=== PATIENT | female | born 1955 | race Caucasian/White ===

== ENCOUNTER 2020-04-22 16:53 | Observation (INO) ==
[2020-04-22] MEDS ORDERED: MoRPHine SULFATE 4 MG/ML 1 ML CARP\\VIAL IV STA (17:14)
[2020-04-22] MEDS ORDERED: PIPERACILLIN/TAZOBACTAM 4.5 GM/120 ML BAG IV STA (17:14)
[2020-04-22] MEDS ORDERED: SODIUM CHLORIDE 0.9% 1000ML 1,000 ML IV SCH (17:15)
--- NOTE | 2020-04-22 17:25 | Emergency Department Note ---
Impression & Plan Diverticulitis large intestine, Abdominal pain, LLQ ED Provider Note Provider: Hector Bradshaw MD DATE OF SERVICE: 04/22/2020 CHIEF COMPLAINT: Abdominal pain HISTORY OF PRESENT ILLNESS: Patient is a 62-year-old female history of hypertension and diabetes presenting today with reports of 5 days of some left lower quadrant pain. Reports started on Cipro Flagyl 4 days ago taking this medication for presumed diverticulitis. Symptoms not improving. Fever at the beginning the course of 100.9 Fahrenheit reported. None since but fatigue. Decreased appetite. Has had a negative cover test over the last several days as well. Denies chest pain or shortness of breath. Had a CT scan by her primary doctor done yesterday as an outpatient showing diverticulitis without evidence of abscess or perforation. Patient is not improved and had follow-up evaluation in the office today with continued significant pain failing outpatient therapy with these antibiotics. Referred here for further care. Patient reports 5 out of 10 pain at this time sometimes worse. Pain with the palpation. Had some diarrhea after the oral contrast yesterday but denies any blood. Again denies a history of diverticulitis. Decreased oral intake reported. Denies back pain. REVIEW OF SYSTEMS: A total of 10 review of systems was obtained and negative except as stated above in the HPI. PAST MEDICAL HISTORY: As noted above MEDICATIONS: Reviewed medication list and includes aspirin, metformin, glipizide SOCIAL HISTORY: Lives at home with 2 dogs, former smoker distantly PHYSICAL EXAM: GENERAL: alert and oriented in no acute distress on stretcher Head: normocephalic and atraumatic EYES: No injection, discharge or icterus. ENT: Mucous membranes pink and moist. LUNGS: Airway patent. No retractions. Breath sounds clear HEART: Regular rate and rhythm. No chest wall tenderness ABDOMEN: Soft non-peritoneal. No guarding or rebound. Left lower quadrant tenderness appreciated. BACK: No bilateral flank tenderness. SKIN: Acyanotic, warm, dry, without rashes EXTREMITIES: Without swelling, tenderness or deformity NEUROLOGICAL: No focal deficits. No aphasia. No facial droop or slurred speech. Ambulatory. Patient's hypertension was referred to the [facility] COURSE: 1705 Patient was first seen and H&P performed. 1829 Patient reassessed and updated. Patient was more comfortable with the morphine. Discussed labs and plan for admission. She was in agreement. Hospitalist will be contacted. Patient's laboratory studies and imaging from yesterday reviewed. Differential includes Appendicitis, ovarian cyst, infections, diverticulitis, UTI, obstruction, mesenteric ischemia, aortic pathology, inflammatory bowel disease, renal colic, PUD, pancreatitis, biliary pathology, hernia, volvulus, constipation, as well as other pathologies. IMPRESSION/MEDICAL DECISION MAKING: Patient presents with failure of outpatient treatment with Cipro and Flagyl of diverticulitis. First episode of this. CT scan done yesterday without evidence of perforation or abscess. Continue pain today and referred here. Afebrile upon arrival. Fever several days ago. Negative COVID test several days ago that does not have other respiratory symptoms. Denies chest pain. Focally tender. Doubt perforation as she has no peritoneal signs. Given the recent CT do not feel we need to repeat at this time. Laboratory studies were obtained. Given some IV fluids, morphine for pain, and will start on Zosyn. Patient does not appear acutely septic at this time. Given that she has failed outpatient initial treatment, believe at least observation here overnight for IV antibiotics before possible transition to a different oral antibiotic is indicated. Patient was in agreement. The hospitalist will be contacted. DIAGNOSIS: Diverticulitis, left lower quad abdominal pain DISPOSITION: Hospitalist will evaluate Patient was agreeable with this plan. Past Med/Surg History Medical History Diabetes Hyperlipidemia Migraine Surgical History History of cholecystectomy Family History Mother Dementia Diabetes Social History Preferred Language: Cypriot Communication Ability: Effective Material Inspector Required: No Beliefs That Will Affect Care: None Current Living Situation: Alone Other Information That Helps Us Care for You: No Feels Safe at Home: Yes Safety Concerns: Feels Safe At This Time Smoking Status: Former smoker Hx Alcohol Use: Yes Hx Substance Use: No Allergies Allergies Allergy/AdvReac Type Severity Reaction Status Date / Time Sulfa (Sulfonamide Allergy Hives Unverified 04/22/20 18:23 Antibiotics) Home Meds Home Medications Medication Instructions Recorded Confirmed aspirin 81 mg PO DAILY 04/22/20 04/22/20 atorvastatin 10 mg PO DAILY 04/22/20 04/22/20 glipizide 5 mg PO DAILY 04/22/20 04/22/20 metformin 1,000 mg PO BID 04/22/20 04/22/20 pantoprazole 20 mg PO DAILY 04/22/20 04/22/20 pediatric multivitamin no.29 2 tab PO DAILY 04/22/20 04/22/20 [G[employer]ies [employer] Multivitamins] sertraline 50 mg PO DAILY 04/22/20 04/22/20 trazodone 100 mg PO HS 04/22/20 04/22/20 Results & Data (ED) Vital Signs Vital Signs - 24 hr 04/22/20 17:00 04/22/20 19:00 Temperature 36.8 C Temperature Source Oral Pulse Rate 99 H 77 Pulse Rate from SpO2 Sensor 77 Respiratory Rate 20 20 Respiratory Effort / Characteristics Non-Labored Spontaneous Respiratory Depth Normal Respiratory Pattern Regular Blood Pressure 135/91 136/85 Blood Pressure Mean 105 113 Pulse Oximetry 96 91 Oxygen Delivery Method Room Air Sepsis Recent Fever Within 48 Hours Yes Sepsis Action Taken by Nursing No Action Required Laboratory Data Result diagrams: 04/22/20 17:32 04/22/20 17:32 Lab Results 04/22/20 04/22/20 04/22/20 Range/Units 17:32 17:32 17:32 WBC 8.42 (4.8-10.8) K/uL RBC 5.12 (4.2-5.4) M/uL Hgb 14.9 (12.0-16.0) g/dL Hct 46.1 (37-47) % MCV 90.0 (80-100) fL MCH 29.1 (25-34) pg MCHC 32.3 (32-36) g/dL RDW Std Deviation 47.4 H (36.4-46.3) fL RDW Coeff of Ronald 14.3 (11.5-14.5) % Plt Count 504 H (130-400) K/uL MPV 10.0 (7.4-10.4) fL Immature Gran % (Auto) 0.1 % Neut % (Auto) 57.1 % Lymph % (Auto) 31.0 % Baca % (Auto) 8.2 % Eos % (Auto) 2.3 % Baso % (Auto) 1.3 % Immature Gran # (Auto) 0.01 (0.00-0.02) K/uL Neut # (Auto) 4.81 (1.4-6.5) K/uL Lymph # (Auto) 2.61 (1.2-3.4) K/uL Baca # (Auto) 0.69 H (0.11-0.59) K/uL Eos # (Auto) 0.19 (0-0.5) K/uL Baso # (Auto) 0.11 (0-0.2) K/uL PT 10.4 (9.0-12.0) Seconds INR 1.0 (0.9-1.1) Sodium 141 (136-145) mmol/L Potassium 3.3 L (3.5-5.1) mmol/L Chloride 104 (98-107) mmol/L Carbon Dioxide 27 (21-32) mmol/L Anion Gap 10.0 (3-11) BUN 9 (7-18) mg/dl Creatinine 0.88 (0.6-1.2) mg/dl Est Cr Clr Drug Dosing 68.7 ml/min Est GFR ( Amer) 81.6 Est GFR (Non-Af Amer) 70.4 BUN/Creatinine Ratio 10.1 (10-20) Glucose 107 H (70-99) mg/dl Lactate (0.4-2.0) mmol/L Calcium 9.1 (8.5-10.1) mg/dl Total Bilirubin 0.4 (0.2-1) mg/dl AST 21 (15-37) U/L ALT 36 (12-78) U/L Alkaline Phosphatase 62 (45-117) U/L Total Protein 7.8 (6.4-8.2) gm/dl Albumin 3.9 (3.4-5.0) gm/dl Globulin 3.9 (2.5-4.0) gm/dl Albumin/Globulin Ratio 1.0 (0.9-2) Lipase 127 (73-393) U/L Procalcitonin (0-0.5) ng/ml 04/22/20 04/22/20 Range/Units 17:32 17:32 WBC (4.8-10.8) K/uL RBC (4.2-5.4) M/uL Hgb (12.0-16.0) g/dL Hct (37-47) % MCV (80-100) fL MCH (25-34) pg MCHC (32-36) g/dL RDW Std Deviation (36.4-46.3) fL RDW Coeff of Ronald (11.5-14.5) % Plt Count (130-400) K/uL MPV (7.4-10.4) fL Immature Gran % (Auto) % Neut % (Auto) % Lymph % (Auto) % Baca % (Auto) % Eos % (Auto) % Baso % (Auto) % Immature Gran # (Auto) (0.00-0.02) K/uL Neut # (Auto) (1.4-6.5) K/uL Lymph # (Auto) (1.2-3.4) K/uL Baca # (Auto) (0.11-0.59) K/uL Eos # (Auto) (0-0.5) K/uL Baso # (Auto) (0-0.2) K/uL PT (9.0-12.0) Seconds INR (0.9-1.1) Sodium (136-145) mmol/L Potassium (3.5-5.1) mmol/L Chloride (98-107) mmol/L Carbon Dioxide (21-32) mmol/L Anion Gap (3-11) BUN (7-18) mg/dl Creatinine (0.6-1.2) mg/dl Est Cr Clr Drug Dosing ml/min Est GFR ( Amer) Est GFR (Non-Af Amer) BUN/Creatinine Ratio (10-20) Glucose (70-99) mg/dl Lactate 1.4 (0.4-2.0) mmol/L Calcium (8.5-10.1) mg/dl Total Bilirubin (0.2-1) mg/dl AST (15-37) U/L ALT (12-78) U/L Alkaline Phosphatase (45-117) U/L Total Protein (6.4-8.2) gm/dl Albumin (3.4-5.0) gm/dl Globulin (2.5-4.0) gm/dl Albumin/Globulin Ratio (0.9-2) Lipase (73-393) U/L Procalcitonin < 0.05 (0-0.5) ng/ml Administered Medications Potassium Chloride/Sodium Chloride (Normal Saline W/20 Meq Kcl) 20 meq in 1,000 mls @ 100 mls/hr IV .Q10H THANH Stop: 05/22/20 21:29 Last Admin: 04/22/20 22:03 Dose: 100 mls/hr Documented by: [id number] Piperacillin Sod/Tazobactam (Sod 3.375 gm/ Dextrose) 115 mls @ 28.75 mls/hr IV Q8H THANH; Protocol Stop: 05/02/20 21:59 Last Admin: 04/22/20 22:03 Dose: 28.8 mls/hr Documented by: [id number] Insulin Aspart (Novolog Flexpen) 0 units SC ACHS THANH Stop: 05/22/20 20:59 Last Admin: 04/22/20 21:47 Dose: Not Given Documented by: [id number] Cosigned by: [id number] Trazodone HCl (Desyrel) 100 mg PO HS THANH Stop: 05/22/20 20:59 Last Admin: 04/22/20 21:59 Dose: 100 mg Documented by: [id number] Discontinued Medications Sodium Chloride (Nss 1000ml) 1,000 mls @ 999 mls/hr IV .Q1H1M THANH Stop: 04/22/20 18:15 Last Infusion: 04/22/20 18:48 Dose: 0 mls/hr Documented by: [id number] Admin: 04/22/20 17:36 Dose: 999 mls/hr Documented by: [id number] Piperacillin Sod/Tazobactam Sod (Zosyn) 4.5 gm in 120 mls @ 200 mls/hr IV NOW STA Stop: 04/22/20 17:49 Last Infusion: 04/22/20 18:48 Dose: 0 mls/hr Documented by: [id number] Admin: 04/22/20 17:40 Dose: 200 mls/hr Documented by: [id number] Morphine Sulfate (Morphine Sulfate) 4 mg IV NOW STA Stop: 04/22/20 17:15 Last Admin: 04/22/20 17:36 Dose: 4 mg Documented by: [id number] Potassium Chloride (Klor-Con M20) 40 meq PO ONE ONE Stop: 04/22/20 20:42 Last Admin: 04/22/20 21:59 Dose: 40 meq Documented by: [id number] Discharge Plan Visit Data *Final* Discharge Date/Time: 04/22/20 20:09 Chief Complaint: Referred by Doctor Stated Complaint: INFECTION NOT HEALING FROM ANTIBIOTIC ED Provider: Hector Bradshaw Discharge Problem: Diverticulitis large intestine, Abdominal pain, LLQ Patient Disposition: Admitted As Inpatient Discharge Instructions Interventions: ED Discharge Assessment Last Done: 04/22/20 20:09 Discharge Problem: Diverticulitis large intestine Qualifiers: Diverticulitis bleeding: without bleeding Diverticulitis complication: without perforation or abscess Qualified Code(s): K57.32 - Diverticulitis of large intestine without perforation or abscess without bleeding
[2020-04-22 17:43] LABS: Basophils # (auto) 0.11 K/uL (0-0.2); Basophils % (auto) 1.3 %; Eosinophils # (auto) 0.19 K/uL (0-0.5); Eosinophils % (auto) 2.3 %; Hematocrit (blood only) 46.1 % (37-47); Hemoglobin 14.9 g/dL (12.0-16.0); Immature Granulocytes # (auto) 0.01 K/uL (0.00-0.02); Immature Granulocytes % (auto) 0.1 %; Lymphocytes # (auto) 2.61 K/uL (1.2-3.4); Mean Corpuscular Hemoglobin 29.1 pg (25-34); Mean Corpuscular Hgb Conc 32.3 g/dL (32-36); Monocytes # (auto) 0.69 K/uL (0.11-0.59); Monocytes % (auto) 8.2 %; Neutrophils # (auto) 4.81 K/uL (1.4-6.5); Neutrophils % (auto) 57.1 %; Platelet Count 504 K/uL (130-400); RDW Coefficient of Variation 14.3 % (11.5-14.5); RDW Standard Deviation 47.4 fL (36.4-46.3); Red Blood Count 5.12 M/uL (4.2-5.4); White Blood Count 8.42 K/uL (4.8-10.8)
[2020-04-22 17:52] LABS: Prothrombin Time 10.4 Seconds (9.0-12.0)
[2020-04-22 18:00] LABS: Albumin Level 3.9 gm/dl (3.4-5.0); BUN Creatinine Ratio 10.1 (10-20); Calcium 9.1 mg/dl (8.5-10.1); Creatinine Clr Calc Pharmacy 68.7 ml/min; Est GFR (African American) 81.6; Est GFR (Non-African American) 70.4; Potassium 3.3 mmol/L (3.5-5.1)
[2020-04-22 18:02] LABS: Bilirubin,Total 0.4 mg/dl (0.2-1); Globulin 3.9 gm/dl (2.5-4.0); Total Protein 7.8 gm/dl (6.4-8.2)
--- NOTE | 2020-04-22 19:11 | History & Physical Report ---
Date of Service April 22, 2020 Assessment & Plan (1) Diverticulitis large intestine: Acute Diverticulitis Failed outpatient Cipro, Flagyl for [address] ABD:Acute diverticulitis at the juncture of the descending and proximal sigmoid colon. Considerable focal wall thickening and pericolonic infiltrative change. No evidence for drainable abscess or collection. No evidence for an obstructive pattern. COVID screen negative (outpatient) Normal lactate, procalcitonin levels No signs of sepsis Started on IV fluids, Zosyn Blood cultures obtained Pain control with morphine as needed Clear liquid diet, advance as tolerated Consider surgery eval if no improvement with conservative manner Hypokalemia Likely secondary to GI losses Replete electrolytes as needed Diarrhea Likely due to antibiotics Check stool studies DM Type II: Poorly controlled Will hold oral diabetic meds Last A1c:6.9 in Nov 2019 Insulin therapy while hospitalized Monitor BGs Anxiety Depression Continue home medication Dyslipidemia Continue Lipitor DVT Px: Lovenox SQ Code Status Full Code Disposition Plan to discharge home when medically stable. History of Present Illness Chief Complaint: Abdominal pain Primary Care Provider: Korin Jaime DO Patient is a 64-year-old female with history of diabetes mellitus, anxiety, depression, dyslipidemia, migraine and other medical problems presents with history of gradually worsening left lower quadrant abdominal pain since 5 days duration. Patient reports having fever 4 days ago which currently resolved. Patient was seen by PCP and was prescribed Cipro and Flagyl for presumed diverticulitis. Patient states abdominal pain mildly improved but has been persistent despite continuing the antibiotics. Reports associated nausea but no vomiting. Also started to have diarrhea since yesterday which is nonbloody. States having poor sleep secondary to abdominal pain and has decreased appetite. Abdominal pain is sharp to dull increases with standing and and on exertion. Also reports having chronic left shoulder discomfort from arthritis. She states being tested for COVID as outpatient which was negative. Denies any history of chest pain, SOB, palpitations, dizziness, pedal edema, diaphoresis, cough, headache, blood in stools, weight loss, dysuria, hematuria. Allergies Allergy/AdvReac Type Severity Reaction Status Date / Time Sulfa (Sulfonamide Allergy Hives Unverified 04/22/20 18:23 Antibiotics) Home Medications Home Medications Medication Instructions Recorded Confirmed Type aspirin 81 mg PO DAILY 04/22/20 04/22/20 History atorvastatin 10 mg PO DAILY 04/22/20 04/22/20 History glipizide 5 mg PO DAILY 04/22/20 04/22/20 History metformin 1,000 mg PO BID 04/22/20 04/22/20 History pantoprazole 20 mg PO DAILY 04/22/20 04/22/20 History pediatric multivitamin no.29 2 tab PO DAILY 04/22/20 04/22/20 History [Gummies Girls' Multivitamins] sertraline 50 mg PO DAILY 04/22/20 04/22/20 History trazodone 100 mg PO HS 04/22/20 04/22/20 History Past Med/Surg History Medical History Diabetes Hyperlipidemia Migraine Surgical History History of cholecystectomy Family History Mother Dementia Diabetes Social History Feels Safe at Home: Yes Smoking Status: Former smoker Hx Alcohol Use: Yes Hx Substance Use: No Review of Systems Review of Systems: All systems reviewed & are unremarkable except as noted in HPI & below Physical Exam Physical Exam: Physical Exam: Vitals signs as noted above General Appearance:Moderately built and nourished, no apparent distress Head: normocephalic, Atraumatic Eyes: normal inspection, EOMI, PERRL Neck: supple, Trachea midline Respiratory/Chest: Normal breath sounds, CTA, No accessory muscle use Cardiovascular: S1, S2, No murmur Abdomen/GI:Soft, LLQ tender, Bowel sounds present, no guarding or rigidity Extremities/Musculoskelatal:normal inspection, no edema Neurologic/Psych:AAOX3, grossly no focal neurological deficits Skin: normal color, warm Results & Data Results & Data ([facility]) Vital Signs (Past 12 Hours) Vital Signs Temp Pulse Resp BP Pulse Ox 04/22/20 17:00 36.8 C 99 H 20 135/91 96 Laboratory Results Short CBC 04/22/20 Range/Units 17:32 WBC 8.42 (4.8-10.8) K/uL Hgb 14.9 (12.0-16.0) g/dL Hct 46.1 (37-47) % Plt Count 504 H (130-400) K/uL BMP 04/22/20 17:32 Sodium 141 Potassium 3.3 L Chloride 104 Carbon Dioxide 27 BUN 9 Creatinine 0.88 Glucose 107 H Calcium 9.1 Liver Function 04/22/20 Range/Units 17:32 Total Bilirubin 0.4 (0.2-1) mg/dl AST 21 (15-37) U/L ALT 36 (12-78) U/L Alkaline Phosphatase 62 (45-117) U/L Albumin 3.9 (3.4-5.0) gm/dl (1) Diverticulitis large intestine Diverticulitis bleeding: without bleeding Diverticulitis complication: without perforation or abscess Qualified Code(s): K57.32 - Diverticulitis of large intestine without perforation or abscess without bleeding
[2020-04-22] MEDS ORDERED: MoRPHine SULFATE 2 MG/ML CARP IV PRN (20:41)
[2020-04-22] MEDS ORDERED: GLUCOSE 10 TABS/TUBE PO PRN (20:41)
[2020-04-22] MEDS ORDERED: POLYETHYLENE (MIRALAX) 17 GM PACK PO PRN (20:41)
[2020-04-22] MEDS ORDERED: DEXTROSE 50% 50 ML SYRINGE IV PRN (20:41)
[2020-04-22] MEDS ORDERED: GLUCAGON FOR INJ 1 MG VIAL SQ PRN (20:41)
[2020-04-22] MEDS ORDERED: CARBOHYDRATES FOR HYPOGLYCEMIA PO PRN (20:41)
[2020-04-22] MEDS ORDERED: POTASSIUM CHLORIDE 20 MEQ TABCR PO ONE (20:41)
[2020-04-22] MEDS ORDERED: ONDANSETRON INJ 2 MG/ML 2 ML VIAL IV PRN (20:41)
[2020-04-22] MEDS ORDERED: GLUCOSE 40% GEL 15 GM TUBE PO PRN (20:41)
[2020-04-22] MEDS ORDERED: ACETAMINOPHEN 325 MG TAB PO PRN (20:41)
[2020-04-22 21:10] LABS: Appearance Urine Clear (Clear); Bilirubin Urine Negative (Negative); Blood Urine Negative (Negative); Color Urine Yellow; Glucose Urine UA Negative (Negative); Ketones Urine Negative (Negative); Leukocyte Esterase Urine 1+ (Negative); Nitrite Urine Negative (Negative); Protein Urine Negative (Negative); Specific Gravity Urine 1.009 (1.000-1.030); Urobilinogen Urine Negative (Negative)
[2020-04-22 21:25] LABS: Bacteria Urine 1+ (Negative); RBC Urine 0-4 /hpf (0-4)
[2020-04-22] MEDS ORDERED: PIPERACILL/TAZOBAC CONSULT ACTIVE PRN (21:41)
[2020-04-22] MEDS: INSULIN ASPART 100 UNITS/ML 3 ML PEN SC SCH ×2 (21:46→21:47)
[2020-04-22] MEDS: TRAZODONE HCL 100 MG TAB PO SCH (21:59)
[2020-04-22] MEDS: PIPERACILLIN/TAZOBACTAM 3.375 GM in DEXTROSE 5% 100 ML IV SCH (22:03)
[2020-04-22] MEDS: NSS + 20MEQ KCL 20 MEQ/1,000 ML BAG IV SCH (22:03)
[2020-04-23] MEDS: PIPERACILLIN/TAZOBACTAM 3.375 GM in DEXTROSE 5% 100 ML IV SCH ×3 (05:45→22:33)
[2020-04-23 06:35] LABS: Basophils # (auto) 0.08 K/uL (0-0.2); Basophils % (auto) 1.2 %; Eosinophils # (auto) 0.46 K/uL (0-0.5); Eosinophils % (auto) 6.8 %; Hematocrit (blood only) 43.2 % (37-47); Hemoglobin 13.5 g/dL (12.0-16.0); Immature Granulocytes # (auto) 0.01 K/uL (0.00-0.02); Immature Granulocytes % (auto) 0.1 %; Lymphocytes # (auto) 2.13 K/uL (1.2-3.4); Lymphocytes % (auto) 31.6 %; Mean Corpuscular Hemoglobin 28.4 pg (25-34); Mean Corpuscular Hgb Conc 31.3 g/dL (32-36); Mean Corpuscular Volume 90.9 fL (80-100); Mean Platelet Volume 9.8 fL (7.4-10.4); Monocytes # (auto) 0.64 K/uL (0.11-0.59); Monocytes % (auto) 9.5 %; Neutrophils # (auto) 3.43 K/uL (1.4-6.5); Neutrophils % (auto) 50.8 %; Platelet Count 442 K/uL (130-400); RDW Coefficient of Variation 14.4 % (11.5-14.5); RDW Standard Deviation 48.2 fL (36.4-46.3); Red Blood Count 4.75 M/uL (4.2-5.4); White Blood Count 6.75 K/uL (4.8-10.8)
[2020-04-23 07:09] LABS: Calcium 8.3 mg/dl (8.5-10.1); Creatinine Clr Calc Pharmacy 70.3 ml/min; Est GFR (African American) 88.9; Est GFR (Non-African American) 76.7; Magnesium 2.1 mg/dl (1.8-2.4)
[2020-04-23] MEDS: NSS + 20MEQ KCL 20 MEQ/1,000 ML BAG IV SCH ×2 (07:47→18:10)
--- NOTE | 2020-04-23 08:16 | Hospitalist Progress Note ---
Date of Service April 23, 2020 Assessment & Plan (1) Diverticulitis large intestine: Acute Diverticulitis Failed outpatient Cipro Flagyl for [address] ABD:Acute diverticulitis at the juncture of the descending and proximal sigmoid colon. Considerable focal wall thickening and pericolonic infiltrative change. No evidence for drainable abscess or collection. No evidence for an obstructive pattern. COVID screen negative (outpatient) Normal lactate (1.4), procalcitonin levels No signs of sepsis Started on IV fluids, Zosyn Blood cultures - NGTD Pain control with morphine as needed Clear liquid diet, advance as tolerated Consider surgery eval if no improvement with conservative manner Patient is clinically improved, abdominal pain is much improved. She is having however frequent watery stools. C. difficile toxin negative Hypokalemia Likely secondary to GI losses Replete electrolytes as needed Diarrhea Likely due to antibiotics Check stool studies C. difficile toxin negative DM Type II: Will hold oral diabetic meds Last A1c:6.9 in Nov 2019 Hemoglobin A1c 6.4% Insulin therapy while hospitalized Monitor BGs Anxiety Depression Continue home medication Dyslipidemia Continue Lipitor DVT Px: Lovenox SQ Code Status : Full Code Disposition Plan to discharge home when medically stable. Admission and Anticipated Discharge Date Admission Date: April 22, 2020 Subjective Patient is lying in bed, in no acute distress. She says that she feels much better, her abdominal pain has much improved. She is having loose watery stools, says that she already had about 3 today. No nausea or vomiting. Denies any fevers, chills, chest pain. C. difficile negative Replace K Review of Systems Review of Systems: All systems reviewed & are unremarkable except as noted in HPI & below Constitutional: no fever and no chills Respiratory: no cough and no dyspnea Cardiovascular: no chest pain and no palpitations Gastrointestinal: no abdominal pain (Much improved), no nausea and no vomiting Physical Exam Physical Exam: General Appearance:Moderately built and nourished, no apparent distress Head: normocephalic, Atraumatic Eyes: normal inspection, EOMI, PERRL Neck: supple, Trachea midline Respiratory/Chest: Normal breath sounds, CTAB, no wheezing, rhonchi or crackles, no accessory muscle use Cardiovascular: S1, S2, No murmur Abdomen/GI:Soft, +LLQ mildly tender to palpation (much improved), Bowel sounds present, no guarding or rigidity Extremities/Musculoskelatal:normal inspection, no edema, moves extremities spontaneously Neurologic/Psych: AAOX3, answers questions appropriately, no facial asymmetry, speech fluent, moves extremities spontaneously Skin: normal color, warm Results & Data Results & Data ([facility]) Vital Signs (Past 12 Hours) Vital Signs Temp Pulse Resp BP Pulse Ox 04/23/20 07:18 36.7 C 67 18 134/81 97 04/22/20 23:09 36.7 C 67 16 136/82 93 04/22/20 20:45 36.9 C 69 18 139/86 93 Laboratory Results 04/23/20 04/23/20 04/23/20 Range/Units 06:03 06:03 06:03 WBC 6.75 (4.8-10.8) K/uL RBC 4.75 (4.2-5.4) M/uL Hgb 13.5 (12.0-16.0) g/dL Hct 43.2 (37-47) % MCV 90.9 (80-100) fL MCH 28.4 (25-34) pg MCHC 31.3 L (32-36) g/dL RDW Std Deviation 48.2 H (36.4-46.3) fL RDW Coeff of Ronald 14.4 (11.5-14.5) % Plt Count 442 H (130-400) K/uL MPV 9.8 (7.4-10.4) fL Immature Gran % (Auto) 0.1 % Neut % (Auto) 50.8 % Lymph % (Auto) 31.6 % [place] % (Auto) 9.5 % Eos % (Auto) 6.8 % Baso % (Auto) 1.2 % Immature Gran # (Auto) 0.01 (0.00-0.02) K/uL Neut # (Auto) 3.43 (1.4-6.5) K/uL Lymph # (Auto) 2.13 (1.2-3.4) K/uL [place] # (Auto) 0.64 H (0.11-0.59) K/uL Eos # (Auto) 0.46 (0-0.5) K/uL Baso # (Auto) 0.08 (0-0.2) K/uL PT (9.0-12.0) Seconds INR (0.9-1.1) Sodium 144 (136-145) mmol/L Potassium 4.0 D (3.5-5.1) mmol/L Chloride 111 H (98-107) mmol/L Carbon Dioxide 25 (21-32) mmol/L Anion Gap 8.0 (3-11) BUN 7 (7-18) mg/dl Creatinine 0.82 (0.6-1.2) mg/dl Est Cr Clr Drug Dosing 70.3 ml/min Est GFR ( Amer) 88.9 Est GFR (Non-Af Amer) 76.7 BUN/Creatinine Ratio 8.0 L (10-20) Glucose 135 H (70-99) mg/dl POC Glucose (70-99) mg/dl Estimat Average Glucose Pending Hemoglobin A1c Pending Lactate (0.4-2.0) mmol/L Calcium 8.3 L (8.5-10.1) mg/dl Magnesium 2.1 (1.8-2.4) mg/dl Total Bilirubin (0.2-1) mg/dl AST (15-37) U/L ALT (12-78) U/L Alkaline Phosphatase (45-117) U/L Total Protein (6.4-8.2) gm/dl Albumin (3.4-5.0) gm/dl Globulin (2.5-4.0) gm/dl Albumin/Globulin Ratio (0.9-2) Lipase (73-393) U/L Procalcitonin (0-0.5) ng/ml Urine Color Urine Appearance (Clear) Urine pH (4.5-7.5) Ur Specific [place] (1.000-1.030) Urine Protein (Negative) Urine Glucose (UA) (Negative) Urine Ketones (Negative) Urine Blood (Negative) Urine Nitrite (Negative) Urine Bilirubin (Negative) Urine Urobilinogen (Negative) Ur Leukocyte Esterase (Negative) Urine RBC (0-4) /hpf Urine WBC (0-5) /hpf Ur Epithelial Cells (0-5) /lpf Urine Bacteria (Negative) Stl C. diff Tox B Gene (Neg) 04/22/20 04/22/20 04/22/20 Range/Units 21:00 21:00 20:50 WBC (4.8-10.8) K/uL RBC (4.2-5.4) M/uL Hgb (12.0-16.0) g/dL Hct (37-47) % MCV (80-100) fL MCH (25-34) pg MCHC (32-36) g/dL RDW Std Deviation (36.4-46.3) fL RDW Coeff of Ronald (11.5-14.5) % Plt Count (130-400) K/uL MPV (7.4-10.4) fL Immature Gran % (Auto) % Neut % (Auto) % Lymph % (Auto) % [place] % (Auto) % Eos % (Auto) % Baso % (Auto) % Immature Gran # (Auto) (0.00-0.02) K/uL Neut # (Auto) (1.4-6.5) K/uL Lymph # (Auto) (1.2-3.4) K/uL [place] # (Auto) (0.11-0.59) K/uL Eos # (Auto) (0-0.5) K/uL Baso # (Auto) (0-0.2) K/uL PT (9.0-12.0) Seconds INR (0.9-1.1) Sodium (136-145) mmol/L Potassium (3.5-5.1) mmol/L Chloride (98-107) mmol/L Carbon Dioxide (21-32) mmol/L Anion Gap (3-11) BUN (7-18) mg/dl Creatinine (0.6-1.2) mg/dl Est Cr Clr Drug Dosing ml/min Est GFR ( Amer) Est GFR (Non-Af Amer) BUN/Creatinine Ratio (10-20) Glucose (70-99) mg/dl POC Glucose 97 (70-99) mg/dl Estimat Average Glucose Hemoglobin A1c Lactate (0.4-2.0) mmol/L Calcium (8.5-10.1) mg/dl Magnesium (1.8-2.4) mg/dl Total Bilirubin (0.2-1) mg/dl AST (15-37) U/L ALT (12-78) U/L Alkaline Phosphatase (45-117) U/L Total Protein (6.4-8.2) gm/dl Albumin (3.4-5.0) gm/dl Globulin (2.5-4.0) gm/dl Albumin/Globulin Ratio (0.9-2) Lipase (73-393) U/L Procalcitonin (0-0.5) ng/ml Urine Color Yellow Urine Appearance Clear (Clear) Urine pH 6.0 (4.5-7.5) Ur Specific [place] 1.009 (1.000-1.030) Urine Protein Negative (Negative) Urine Glucose (UA) Negative (Negative) Urine Ketones Negative (Negative) Urine Blood Negative (Negative) Urine Nitrite Negative (Negative) Urine Bilirubin Negative (Negative) Urine Urobilinogen Negative (Negative) Ur Leukocyte Esterase 1+ H (Negative) Urine RBC 0-4 (0-4) /hpf Urine WBC 10-30 H (0-5) /hpf Ur Epithelial Cells 10-20 H (0-5) /lpf Urine Bacteria 1+ H (Negative) Stl C. diff Tox B Gene Negative Cdiff Gene (Neg) 04/22/20 04/22/20 04/22/20 Range/Units 17:32 17:32 17:32 WBC (4.8-10.8) K/uL RBC (4.2-5.4) M/uL Hgb (12.0-16.0) g/dL Hct (37-47) % MCV (80-100) fL MCH (25-34) pg MCHC (32-36) g/dL RDW Std Deviation (36.4-46.3) fL RDW Coeff of Ronald (11.5-14.5) % Plt Count (130-400) K/uL MPV (7.4-10.4) fL Immature Gran % (Auto) % Neut % (Auto) % Lymph % (Auto) % [place] % (Auto) % Eos % (Auto) % Baso % (Auto) % Immature Gran # (Auto) (0.00-0.02) K/uL Neut # (Auto) (1.4-6.5) K/uL Lymph # (Auto) (1.2-3.4) K/uL [place] # (Auto) (0.11-0.59) K/uL Eos # (Auto) (0-0.5) K/uL Baso # (Auto) (0-0.2) K/uL PT (9.0-12.0) Seconds INR (0.9-1.1) Sodium 141 (136-145) mmol/L Potassium 3.3 L (3.5-5.1) mmol/L Chloride 104 (98-107) mmol/L Carbon Dioxide 27 (21-32) mmol/L Anion Gap 10.0 (3-11) BUN 9 (7-18) mg/dl Creatinine 0.88 (0.6-1.2) mg/dl Est Cr Clr Drug Dosing 68.7 ml/min Est GFR ( Amer) 81.6 Est GFR (Non-Af Amer) 70.4 BUN/Creatinine Ratio 10.1 (10-20) Glucose 107 H (70-99) mg/dl POC Glucose (70-99) mg/dl Estimat Average Glucose Hemoglobin A1c Lactate 1.4 (0.4-2.0) mmol/L Calcium 9.1 (8.5-10.1) mg/dl Magnesium (1.8-2.4) mg/dl Total Bilirubin 0.4 (0.2-1) mg/dl AST 21 (15-37) U/L ALT 36 (12-78) U/L Alkaline Phosphatase 62 (45-117) U/L Total Protein 7.8 (6.4-8.2) gm/dl Albumin 3.9 (3.4-5.0) gm/dl Globulin 3.9 (2.5-4.0) gm/dl Albumin/Globulin Ratio 1.0 (0.9-2) Lipase 127 (73-393) U/L Procalcitonin < 0.05 (0-0.5) ng/ml Urine Color Urine Appearance (Clear) Urine pH (4.5-7.5) Ur Specific [place] (1.000-1.030) Urine Protein (Negative) Urine Glucose (UA) (Negative) Urine Ketones (Negative) Urine Blood (Negative) Urine Nitrite (Negative) Urine Bilirubin (Negative) Urine Urobilinogen (Negative) Ur Leukocyte Esterase (Negative) Urine RBC (0-4) /hpf Urine WBC (0-5) /hpf Ur Epithelial Cells (0-5) /lpf Urine Bacteria (Negative) Stl C. diff Tox B Gene (Neg) 04/22/20 04/22/20 Range/Units 17:32 17:32 WBC 8.42 (4.8-10.8) K/uL RBC 5.12 (4.2-5.4) M/uL Hgb 14.9 (12.0-16.0) g/dL Hct 46.1 (37-47) % MCV 90.0 (80-100) fL MCH 29.1 (25-34) pg MCHC 32.3 (32-36) g/dL RDW Std Deviation 47.4 H (36.4-46.3) fL RDW Coeff of Ronald 14.3 (11.5-14.5) % Plt Count 504 H (130-400) K/uL MPV 10.0 (7.4-10.4) fL Immature Gran % (Auto) 0.1 % Neut % (Auto) 57.1 % Lymph % (Auto) 31.0 % [place] % (Auto) 8.2 % Eos % (Auto) 2.3 % Baso % (Auto) 1.3 % Immature Gran # (Auto) 0.01 (0.00-0.02) K/uL Neut # (Auto) 4.81 (1.4-6.5) K/uL Lymph # (Auto) 2.61 (1.2-3.4) K/uL [place] # (Auto) 0.69 H (0.11-0.59) K/uL Eos # (Auto) 0.19 (0-0.5) K/uL Baso # (Auto) 0.11 (0-0.2) K/uL PT 10.4 (9.0-12.0) Seconds INR 1.0 (0.9-1.1) Sodium (136-145) mmol/L Potassium (3.5-5.1) mmol/L Chloride (98-107) mmol/L Carbon Dioxide (21-32) mmol/L Anion Gap (3-11) BUN (7-18) mg/dl Creatinine (0.6-1.2) mg/dl Est Cr Clr Drug Dosing ml/min Est GFR ( Amer) Est GFR (Non-Af Amer) BUN/Creatinine Ratio (10-20) Glucose (70-99) mg/dl POC Glucose (70-99) mg/dl Estimat Average Glucose Hemoglobin A1c Lactate (0.4-2.0) mmol/L Calcium (8.5-10.1) mg/dl Magnesium (1.8-2.4) mg/dl Total Bilirubin (0.2-1) mg/dl AST (15-37) U/L ALT (12-78) U/L Alkaline Phosphatase (45-117) U/L Total Protein (6.4-8.2) gm/dl Albumin (3.4-5.0) gm/dl Globulin (2.5-4.0) gm/dl Albumin/Globulin Ratio (0.9-2) Lipase (73-393) U/L Procalcitonin (0-0.5) ng/ml Urine Color Urine Appearance (Clear) Urine pH (4.5-7.5) Ur Specific [place] (1.000-1.030) Urine Protein (Negative) Urine Glucose (UA) (Negative) Urine Ketones (Negative) Urine Blood (Negative) Urine Nitrite (Negative) Urine Bilirubin (Negative) Urine Urobilinogen (Negative) Ur Leukocyte Esterase (Negative) Urine RBC (0-4) /hpf Urine WBC (0-5) /hpf Ur Epithelial Cells (0-5) /lpf Urine Bacteria (Negative) Stl C. diff Tox B Gene (Neg) Medications Administered Current Inpatient Medications Acetaminophen (Tylenol) 650 mg PO Q4H PRN PRN Reason: pain/fever Stop: 05/22/20 20:40 Aspirin (Ecotrin Ectab) 81 mg PO DAILY [facility] Stop: 05/23/20 08:59 Atorvastatin Calcium (Lipitor) 10 mg PO DAILY [facility] Stop: 05/23/20 08:59 Dextrose (Dextrose 50%) 25 - 50 ml IV UD PRN; Protocol PRN Reason: Hypoglycemia Protocol Stop: 05/22/20 20:40 Enoxaparin Sodium (Lovenox) 40 mg SQ QAM [facility] Stop: 05/23/20 08:59 Glucagon (Glucagen) 1 mg SQ UD PRN; Protocol PRN Reason: Hypoglycemia Protocol Stop: 05/22/20 20:40 Glucose (Dex4 Glucose) 4 - 8 tabs PO UD PRN; Protocol PRN Reason: Hypoglycemia Protocol Stop: 05/22/20 20:40 Glucose (Glucose 40%) 15 - 30 gm PO UD PRN; Protocol PRN Reason: Hypoglycemia Protocol Stop: 05/22/20 20:40 Potassium Chloride/Sodium Chloride (Normal Saline W/20 Meq Kcl) 20 meq in 1,000 mls @ 100 mls/hr IV .Q10H [facility] Stop: 05/22/20 21:29 Last Admin: 04/23/20 07:47 Dose: 100 mls/hr Documented by: Piperacillin Sod/Tazobactam (Sod 3.375 gm/ Dextrose) 115 mls @ 28.75 mls/hr IV Q8H [facility]; Protocol Stop: 05/02/20 21:59 Last Admin: 04/23/20 05:45 Dose: 28.8 mls/hr Documented by: Insulin Aspart (Novolog Flexpen) 0 units SC ACHS [facility] Stop: 05/22/20 20:59 Last Admin: 04/22/20 21:47 Dose: Not Given Documented by: Miscellaneous (Carbohydrates For Hypoglycemia) 15 - 30 gm PO UD PRN PRN Reason: Hypoglycemia Protocol Stop: 05/22/20 20:40 Miscellaneous Information (Consult) 1 ea N/A UD PRN PRN Reason: Consult Stop: 05/22/20 21:40 Morphine Sulfate (Morphine Sulfate) 2 mg IV Q3H PRN PRN Reason: Pain Stop: 05/06/20 20:40 Ondansetron HCl (Zofran) 4 mg IV Q6H PRN PRN Reason: Nausea Stop: 05/22/20 20:40 Pantoprazole Sodium (Protonix) 40 mg PO DAILY [facility] Stop: 05/23/20 08:59 Polyethylene Glycol (Miralax Powder Packet) 17 gm PO DAILY PRN PRN Reason: Constipation Stop: 05/22/20 20:40 Sertraline HCl (Zoloft) 50 mg PO DAILY [facility] Stop: 05/23/20 08:59 Trazodone HCl (Desyrel) 100 mg PO HS [facility] Stop: 05/22/20 20:59 Last Admin: 04/22/20 21:59 Dose: 100 mg Documented by: (1) Diverticulitis large intestine Diverticulitis bleeding: without bleeding Diverticulitis complication: without perforation or abscess Qualified Code(s): K57.32 - Diverticulitis of large intestine without perforation or abscess without bleeding
[2020-04-23] MEDS: PANTOprazole 40 MG TAB PO SCH (08:39)
[2020-04-23] MEDS: ASPIRIN 81 MG ECTAB PO SCH (08:39)
[2020-04-23] MEDS: ATORVASTATIN 10 MG TAB PO SCH (08:40)
[2020-04-23] MEDS: SERTRALINE HCL 50 MG TABLET PO SCH (08:40)
[2020-04-23] MEDS: ENOXAPARIN INJ 40 MG/0.4 ML SYR SQ SCH (08:41)
[2020-04-23] MEDS: INSULIN ASPART 100 UNITS/ML 3 ML PEN SC SCH ×4 (09:14→21:48)
[2020-04-23] MEDS: TRAZODONE HCL 100 MG TAB PO SCH (21:38)
[2020-04-24] MEDS: NSS + 20MEQ KCL 20 MEQ/1,000 ML BAG IV SCH ×2 (02:39→12:40)
[2020-04-24] MEDS: PIPERACILLIN/TAZOBACTAM 3.375 GM in DEXTROSE 5% 100 ML IV SCH ×2 (05:56→13:17)
[2020-04-24 06:00] LABS: Estimated Average Glucose 137 mg/dl; Hemoglobin A1C 6.4 % (4.5-5.6)
[2020-04-24 06:31] LABS: Hematocrit (blood only) 44.3 % (37-47); Hemoglobin 14.4 g/dL (12.0-16.0); Mean Corpuscular Hemoglobin 29.1 pg (25-34); Mean Corpuscular Hgb Conc 32.5 g/dL (32-36); Mean Corpuscular Volume 89.7 fL (80-100); Mean Platelet Volume 9.9 fL (7.4-10.4); Platelet Count 426 K/uL (130-400); RDW Coefficient of Variation 14.3 % (11.5-14.5); RDW Standard Deviation 46.7 fL (36.4-46.3); Red Blood Count 4.94 M/uL (4.2-5.4); White Blood Count 7.39 K/uL (4.8-10.8)
[2020-04-24 07:09] LABS: Creatinine Clr Calc Pharmacy 75.9 ml/min; Est GFR (African American) 97.4; Est GFR (Non-African American) 84.1; Magnesium 2.3 mg/dl (1.8-2.4); Phosphorus 3.8 mg/dl (2.5-4.9); Potassium 4.3 mmol/L (3.5-5.1)
[2020-04-24] MEDS: ENOXAPARIN INJ 40 MG/0.4 ML SYR SQ SCH (08:41)
[2020-04-24] MEDS: INSULIN ASPART 100 UNITS/ML 3 ML PEN SC SCH ×2 (08:42→12:42)
[2020-04-24] MEDS: ASPIRIN 81 MG ECTAB PO SCH (08:43)
[2020-04-24] MEDS: ATORVASTATIN 10 MG TAB PO SCH (08:43)
[2020-04-24] MEDS: PANTOprazole 40 MG TAB PO SCH (08:44)
[2020-04-24] MEDS: SERTRALINE HCL 50 MG TABLET PO SCH (08:44)
--- NOTE | 2020-04-24 14:53 | Hospitalist Progress Note ---
Date of Service April 24, 2020 Assessment & Plan (1) Diverticulitis large intestine: Acute Diverticulitis Failed outpatient Cipro, Flagyl for [address] ABD:Acute diverticulitis at the juncture of the descending and proximal sigmoid colon. Considerable focal wall thickening and pericolonic infiltrative change. No evidence for drainable abscess or collection. No evidence for an obstructive pattern. COVID screen negative (outpatient) Normal lactate (1.4), procalcitonin levels No signs of sepsis Started on IV fluids, Zosyn Blood cultures - NGTD Pain control with morphine as needed Clear liquid diet, advance as tolerated -not tolerating fat, low fiber diet Consider surgery eval if no improvement with conservative manner Patient is clinically improved, abdominal pain has resolved. C. difficile toxin negative Stool culture negative, except for fungus in stool culture. Discussed with ID in [place], no concern, most likely secondary to antibiotic use. Recommend to discharge on Augmentin and ciprofloxacin. Hypokalemia Likely secondary to GI losses Replete electrolytes as needed Diarrhea Likely due to antibiotics Check stool studies C. difficile toxin negative DM Type II: Will hold oral diabetic meds Last A1c:6.9 in Nov 2019 Hemoglobin A1c 6.4% Insulin therapy while hospitalized Monitor BGs Anxiety Depression Continue home medication Dyslipidemia Continue Lipitor DVT Px: Lovenox SQ Code Status : Full Code Disposition Plan to discharge home. Admission and Anticipated Discharge Date Admission Date: April 22, 2020 Subjective No acute events overnight. Patient is sitting up in bed, in no acute distress. Only had one looser stool this morning but says much improved from yesterday. She feels much better and denies any abdominal pain. Fungus noted on stool culture, discussed this with ID in [place], no concerns, most likely secondary to antibiotic use. Recommend to discharge on Augmentin and ciprofloxacin. Patient also denies any fevers, chills, chest pain, shortness of breath, no nausea or vomiting. C. difficile negative Review of Systems Review of Systems: All systems reviewed & are unremarkable except as noted in HPI & below Constitutional: no fever and no chills Respiratory: no cough and no dyspnea Cardiovascular: no chest pain and no palpitations Gastrointestinal: + diarrhea/loose stools (Improved); no abdominal pain, no nausea and no vomiting Physical Exam Physical Exam: General Appearance:Moderately built and nourished, no apparent distress Head: normocephalic, Atraumatic Eyes: normal inspection, EOMI, PERRL Neck: supple, Trachea midline Respiratory/Chest: Normal breath sounds, CTAB, no wheezing, rhonchi or crackles, no accessory muscle use Cardiovascular: S1, S2, No murmur Abdomen/GI: Soft, no tenderness to palpation (resolved), Bowel sounds present, no guarding or rigidity Extremities/Musculoskelatal:normal inspection, no edema, moves extremities spontaneously Neurologic/Psych: AAOX3, answers questions appropriately, no facial asymmetry, speech fluent, moves extremities spontaneously Skin: normal color, warm Results & Data Results & Data ([facility]) Vital Signs (Past 12 Hours) Vital Signs Temp Pulse Resp BP Pulse Ox 04/24/20 07:02 36.7 C 62 16 143/88 H 95 Laboratory Results 04/24/20 04/24/20 04/24/20 Range/Units 12:16 08:12 06:10 WBC (4.8-10.8) K/uL RBC (4.2-5.4) M/uL Hgb (12.0-16.0) g/dL Hct (37-47) % MCV (80-100) fL MCH (25-34) pg MCHC (32-36) g/dL RDW Std Deviation (36.4-46.3) fL RDW Coeff of Ronald (11.5-14.5) % Plt Count (130-400) K/uL MPV (7.4-10.4) fL Sodium 142 (136-145) mmol/L Potassium 4.3 (3.5-5.1) mmol/L Chloride 112 H (98-107) mmol/L Carbon Dioxide 24 (21-32) mmol/L Anion Gap 6.0 (3-11) BUN 5 L (7-18) mg/dl Creatinine 0.76 (0.6-1.2) mg/dl Est Cr Clr Drug Dosing 75.9 ml/min Est GFR ( Amer) 97.4 Est GFR (Non-Af Amer) 84.1 BUN/Creatinine Ratio 7.0 L (10-20) Glucose 128 H (70-99) mg/dl POC Glucose 107 H 145 H (70-99) mg/dl Estimat Average Glucose mg/dl Hemoglobin A1c (4.5-5.6) % Calcium 9.0 (8.5-10.1) mg/dl Phosphorus 3.8 (2.5-4.9) mg/dl Magnesium 2.3 (1.8-2.4) mg/dl 04/24/20 04/23/20 04/23/20 Range/Units 06:10 20:54 17:07 WBC 7.39 (4.8-10.8) K/uL RBC 4.94 (4.2-5.4) M/uL Hgb 14.4 (12.0-16.0) g/dL Hct 44.3 (37-47) % MCV 89.7 (80-100) fL MCH 29.1 (25-34) pg MCHC 32.5 (32-36) g/dL RDW Std Deviation 46.7 H (36.4-46.3) fL RDW Coeff of Ronald 14.3 (11.5-14.5) % Plt Count 426 H (130-400) K/uL MPV 9.9 (7.4-10.4) fL Sodium (136-145) mmol/L Potassium (3.5-5.1) mmol/L Chloride (98-107) mmol/L Carbon Dioxide (21-32) mmol/L Anion Gap (3-11) BUN (7-18) mg/dl Creatinine (0.6-1.2) mg/dl Est Cr Clr Drug Dosing ml/min Est GFR ( Amer) Est GFR (Non-Af Amer) BUN/Creatinine Ratio (10-20) Glucose (70-99) mg/dl POC Glucose 116 H 119 H (70-99) mg/dl Estimat Average Glucose mg/dl Hemoglobin A1c (4.5-5.6) % Calcium (8.5-10.1) mg/dl Phosphorus (2.5-4.9) mg/dl Magnesium (1.8-2.4) mg/dl 04/23/20 Range/Units 06:03 WBC (4.8-10.8) K/uL RBC (4.2-5.4) M/uL Hgb (12.0-16.0) g/dL Hct (37-47) % MCV (80-100) fL MCH (25-34) pg MCHC (32-36) g/dL RDW Std Deviation (36.4-46.3) fL RDW Coeff of Ronald (11.5-14.5) % Plt Count (130-400) K/uL MPV (7.4-10.4) fL Sodium (136-145) mmol/L Potassium (3.5-5.1) mmol/L Chloride (98-107) mmol/L Carbon Dioxide (21-32) mmol/L Anion Gap (3-11) BUN (7-18) mg/dl Creatinine (0.6-1.2) mg/dl Est Cr Clr Drug Dosing ml/min Est GFR ( Amer) Est GFR (Non-Af Amer) BUN/Creatinine Ratio (10-20) Glucose (70-99) mg/dl POC Glucose (70-99) mg/dl Estimat Average Glucose 137 mg/dl Hemoglobin A1c 6.4 H (4.5-5.6) % Calcium (8.5-10.1) mg/dl Phosphorus (2.5-4.9) mg/dl Magnesium (1.8-2.4) mg/dl Medications Administered Current Inpatient Medications Acetaminophen (Tylenol) 650 mg PO Q4H PRN PRN Reason: pain/fever Stop: 05/22/20 20:40 Aspirin (Ecotrin Ectab) 81 mg PO DAILY [facility] Stop: 05/23/20 08:59 Last Admin: 04/24/20 08:43 Dose: 81 mg Documented by: Atorvastatin Calcium (Lipitor) 10 mg PO DAILY [facility] Stop: 05/23/20 08:59 Last Admin: 04/24/20 08:43 Dose: 10 mg Documented by: Dextrose (Dextrose 50%) 25 - 50 ml IV UD PRN; Protocol PRN Reason: Hypoglycemia Protocol Stop: 05/22/20 20:40 Enoxaparin Sodium (Lovenox) 40 mg SQ QAM [facility] Stop: 05/23/20 08:59 Last Admin: 04/24/20 08:41 Dose: Not Given Documented by: Glucagon (Glucagen) 1 mg SQ UD PRN; Protocol PRN Reason: Hypoglycemia Protocol Stop: 05/22/20 20:40 Glucose (Dex4 Glucose) 4 - 8 tabs PO UD PRN; Protocol PRN Reason: Hypoglycemia Protocol Stop: 05/22/20 20:40 Glucose (Glucose 40%) 15 - 30 gm PO UD PRN; Protocol PRN Reason: Hypoglycemia Protocol Stop: 05/22/20 20:40 Potassium Chloride/Sodium Chloride (Normal Saline W/20 Meq Kcl) 20 meq in 1,000 mls @ 100 mls/hr IV .Q10H [facility] Stop: 05/22/20 21:29 Last Admin: 04/24/20 12:40 Dose: 100 mls/hr Documented by: Piperacillin Sod/Tazobactam (Sod 3.375 gm/ Dextrose) 115 mls @ 28.75 mls/hr IV Q8H [facility]; Protocol Stop: 05/02/20 21:59 Last Admin: 04/24/20 13:17 Dose: 28.8 mls/hr Documented by: Insulin Aspart (Novolog Flexpen) 0 units SC ACHS [facility] Stop: 05/22/20 20:59 Last Admin: 04/24/20 12:42 Dose: 2 units Documented by: Miscellaneous (Carbohydrates For Hypoglycemia) 15 - 30 gm PO UD PRN PRN Reason: Hypoglycemia Protocol Stop: 05/22/20 20:40 Miscellaneous Information (Consult) 1 ea N/A UD PRN PRN Reason: Consult Stop: 05/22/20 21:40 Morphine Sulfate (Morphine Sulfate) 2 mg IV Q3H PRN PRN Reason: Pain Stop: 05/06/20 20:40 Ondansetron HCl (Zofran) 4 mg IV Q6H PRN PRN Reason: Nausea Stop: 05/22/20 20:40 Pantoprazole Sodium (Protonix) 40 mg PO DAILY [facility] Stop: 05/23/20 08:59 Last Admin: 04/24/20 08:44 Dose: 40 mg Documented by: Polyethylene Glycol (Miralax Powder Packet) 17 gm PO DAILY PRN PRN Reason: Constipation Stop: 05/22/20 20:40 Sertraline HCl (Zoloft) 50 mg PO DAILY [facility] Stop: 05/23/20 08:59 Last Admin: 04/24/20 08:44 Dose: 50 mg Documented by: Trazodone HCl (Desyrel) 100 mg PO HS [facility] Stop: 05/22/20 20:59 Last Admin: 04/23/20 21:38 Dose: 100 mg Documented by: (1) Diverticulitis large intestine Diverticulitis bleeding: without bleeding Diverticulitis complication: without perforation or abscess Qualified Code(s): K57.32 - Diverticulitis of large intestine without perforation or abscess without bleeding
--- NOTE | 2020-04-24 15:14 | Discharge Summary ---
Date of Service April 24, 2020 Admission HPI Per Admitting Provider Patient is a 64-year-old female with history of diabetes mellitus, anxiety, depression, dyslipidemia, migraine and other medical problems presents with history of gradually worsening left lower quadrant abdominal pain since 5 days duration. Patient reports having fever 4 days ago which currently resolved. Patient was seen by PCP and was prescribed Cipro and Flagyl for presumed diverticulitis. Patient states abdominal pain mildly improved but has been persistent despite continuing the antibiotics. Reports associated nausea but no vomiting. Also started to have diarrhea since yesterday which is nonbloody. St ates having poor sleep secondary to abdominal pain and has decreased appetite. Abdominal pain is sharp to dull increases with standing and and on exertion. Also reports having chronic left shoulder discomfort from arthritis. She states being tested for COVID as outpatient which was negative. Denies any history of chest pain, SOB, palpitations, dizziness, pedal edema, diaphoresis, cough, headache, blood in stools, weight loss, dysuria, hematuria. Admission Exam Per Admitting Provider Physical Exam: Vitals signs as noted above General Appearance:Moderately built and nourished, no apparent distress Head: normocephalic, Atraumatic Eyes: normal inspection, EOMI, PERRL Neck: supple, Trachea midline Respiratory/Chest: Normal breath sounds, CTA, No accessory muscle use Cardiovascular: S1, S2, No murmur Abdomen/GI:Soft, LLQ tender, Bowel sounds present, no guarding or rigidity Extremities/Musculoskelatal:normal inspection, no edema Neurologic/Psych:AAOX3, grossly no focal neurological deficits Skin: normal color, warm Principal Diagnosis Acute diverticulitis Discharge Exam General Appearance:Moderately built and nourished, no apparent distress Head: normocephalic, Atraumatic Eyes: normal inspection, EOMI, PERRL Neck: supple, Trachea midline Respiratory/Chest: Normal breath sounds, CTAB, no wheezing, rhonchi or crackles, no accessory muscle use Cardiovascular: S1, S2, No murmur Abdomen/GI: Soft, no tenderness to palpation (resolved), Bowel sounds present, no guarding or rigidity Extremities/Musculoskelatal:normal inspection, no edema, moves extremities spontaneously Neurologic/Psych: AAOX3, answers questions appropriately, no facial asymmetry, speech fluent, moves extremities spontaneously Skin: normal color, warm Discharge Data Allergies Allergy/AdvReac Type Severity Reaction Status Date / Time Sulfa (Sulfonamide Allergy Hives Unverified 04/22/20 18:23 Antibiotics) Consultations 04/22/20 18:54 ED Decision to Admit Stat Hospital Course (1) Diverticulitis large intestine: Acute Diverticulitis Failed outpatient Cipro, Flagyl for [address] ABD:Acute diverticulitis at the juncture of the descending and proximal sigmo id colon. Considerable focal wall thickening and pericolonic infiltrative change. No evidence for drainable abscess or collection. No evidence for an obstructive pattern. COVID screen negative (outpatient) Normal lactate (1.4), procalcitonin levels No signs of sepsis Started on IV fluids, Zosyn Blood cultures - NGTD Pain control with morphine as needed while inpt Clear liquid diet, advanced as tolerated - now tolerating low fat, low fiber /low residue diet Patient is clinically improved, abdominal pain has resolved. C. difficile toxin negative Stool culture negative, except for fungus in stool culture. Discussed with ID in [place], no concern, most likely secondary to antibiotic use. Recommend to discharge on Augmentin and ciprofloxacin. Hypokalemia Likely secondary to GI losses Replete electrolytes as needed Diarrhea Likely due to antibiotics Check stool studies C. difficile toxin negative DM Type II: Will hold oral diabetic meds Last A1c:6.9 in Nov 2019 Hemoglobin A1c 6.4% Insulin therapy while hospitalized Monitor BGs Anxiety Depression Continue home medication Dyslipidemia Continue Lipitor Disposition: Plan to discharge home. Total Time Total Time Spent Total Time Spent (In Minutes): 40 Total Time Includes: Examination of the Patient, Discharge Planning and Medication Reconciliation Discharge Plan Discharge Items Patient Disposition: Home - Self-Care Reason For Visit: ABDOMINAL PAIN Discharge Diagnosis: Acute diverticulitis Activity: Per Instructions section Non-emergency contact: Primary Care Provider Call non-emergency contact if: you have any medication questions and your symptoms worsen Follow-up/Referrals: Korin Jaime DO [Primary Care Provider] - Diet: Low Fiber and Low Fat Addtl Attending Provider Instructions: Follow-up with your primary care doctor within 1 week. Continue taking antibiotics as prescribed, Augmentin and ciprofloxacin. Recommend low-fat, low residual/low fiber diet for at least 1 week. It was a pleasure taking care of you! Wishing you a speedy recovery. Garth Artis MD Pending Studies at Discharge: Yes Studies:: Final stool cultures Stand-Alone Forms: [facility], Smoking Cessation Medications and DC Order Prescriptions: New amoxicillin-pot clavulanate [Augmentin] 875-125 mg tablet 1 tab PO BID 6 Days Qty: 12 RF: 0 ciprofloxacin HCl 500 mg tablet 500 mg PO Q12H 6 Days Qty: 12 RF: 0 Continued atorvastatin 10 mg tablet 10 mg PO DAILY RF: 0 glipizide 5 mg tablet extended release 24hr 5 mg PO DAILY RF: 0 aspirin 81 mg Tablet,Delayed Release (Dr/Ec) 81 mg PO DAILY RF: 0 pantoprazole 20 mg tablet,delayed release (DR/EC) 20 mg PO DAILY RF: 0 trazodone 100 mg tablet 100 mg PO HS RF: 0 metformin 1,000 mg tablet 1,000 mg PO BID RF: 0 sertraline 50 mg tablet 50 mg PO DAILY RF: 0 Gummies Girls[employer] Multivitamins Tablet,Chewable 2 tab PO DAILY RF: 0 Discharge Orders: Discharge Order (Routine); Ordered 04/24/20 Ordered By: Ever Valle/Other Patient Handouts: Low-Fiber Diet Admission Data Admit Date/Time: 04/22/20 19:22 Attending Provider: Ever Artis Admit Provider: David Goodwin Primary Care Provider: Korin Jaime Other Providers: David Goodwin
== END 2020-04-24 17:00 | disposition home or self-care (01) ==
LOC: ED 16:53 → 3W 16:53 → SUATTDRO 19:22 → 3W 20:09

== ENCOUNTER 2022-07-10 07:07 | Observation (INO) ==
--- NOTE | 2022-06-19 16:07 | PAT Medication Instructions ---
Medication Instructions Date of Service June 19, 2022 Home Medications atorvastatin 10 mg tablet 10 mg PO QAM glipizide 5 mg tablet, extended release 24 hr 2.5 mg PO DAILY metformin 1,000 mg tablet 1,000 mg PO BID pantoprazole 20 mg tablet,delayed release 20 mg PO QAM pediatric multivitamin no.29 ([employer] Multivitamins chewable tablet) 2 tab PO QAM sertraline 50 mg tablet 50 mg PO QAM trazodone 100 mg tablet 100 mg PO HS semaglutide 0.25 mg or 0.5 mg (2 mg/1.5 mL) subcutaneous pen injector (Ozempic) 1 mg subcut WK Continue as directed semaglutide 0.25 mg or 0.5 mg (2 mg/1.5 mL) subcutaneous pen injector (Ozempic) 1 mg subcut WK DO NOT take the morning of surgery glipizide 5 mg tablet, extended release 24 hr 2.5 mg PO DAILY metformin 1,000 mg tablet 1,000 mg PO BID pediatric multivitamin no.29 ([employer] Multivitamins chewable tablet) 2 tab PO QAM Take morning of surgery With a small sip of water, OTHERWISE NOTHING TO EAT OR DRINK AFTER MIDNIGHT: atorvastatin 10 mg tablet 10 mg PO QAM pantoprazole 20 mg tablet,delayed release 20 mg PO QAM sertraline 50 mg tablet 50 mg PO QAM Take evening before surgery metformin 1,000 mg tablet 1,000 mg PO BID trazodone 100 mg tablet 100 mg PO HS Other Notes If you have any questions please call us at [phone] or [phone] or [phone] or [phone]
--- NOTE | 2022-06-21 10:12 | Anesthesiology Consultation ---
Date of Service June 21, 2022 Assessment & Plan (1) Encounter for pre-operative examination: - Family hx Malignant hyperthermia: Family hx of MH sister and niece (sister's daughter) tested positive positive, mother with possible hx (not formally tested). Pt had genetic testing done 06/19/22 but specimen not submitted as insurance auth was still pending. Per [facility] communication note, patient appears to plan to have redrawn prior to surgery. Case reviewed with Dr. Starks. Even if genetic susceptibility testing comes back negative, due to confirmed family hx of MH, will use MH precautions. OR made aware. Awaiting MH genetic susceptibility lab results if obtained/resulted prior to surgery ([facility]). - PCP office visit (06/17/22): "She has pre-admission testing scheduled for next week and will forward us the results of the labs, EKG and x-ray upon which time I will complete my note. Patient reports family history of malignant hyperthermia, her mom had a lot of trouble with anesthesia when she had a hysterectomy at age 74, and so her sister who is a nurse got tested and was positive around age 60, her niece (sister's daughter) was tested at age 34 and was found to be positive. We will fill out the genetic testing order slip from invite today which I reviewed with patient in depth so that this can be completed. Our hope is that it will be completed prior to surgery.. Family history of malignant hyperthermia.. invitae genetic testing form filled out. Patient had laparoscopic surgery years ago and doesn't report any problems with anesthesia." PCP awaiting preop testing for final clearance (Dr. Korin Jaime/[facility]). - Outpatient joint assessment: Patient seen in PAT 06/21. Reports good functional status and strong home support post-operatively. Currently scheduled as inpatient pathway. Case reviewed with Dr. Starks including family hx of MH. If surgeon wishes case reviewed for outpatient joint pathway, Dr. Starks feels that patient is acceptable candidate for outpatient joint program from anesthesia standpoint pending surgeon's office assessment of pt motivation/support/completion of same day joint program preop requirements. - COVID screening: Per assessment on 06/21: No known COVID-19 positive contacts or current COVID-19 related symptoms. Travel screen negative. Patient vaccinated. At surgeon discretion if preop Covid testing being done. - Check [facility] AM DOS Chart Review Chart Review: Patient seen in Pre Admission Testing Teaching & Discussion Pre-Anesthesia Teaching/Discussion Notes: Instructed NPO after midnight before surgery,except medications with 15 cc of water. Medication instructions provided according to the PAT guidelines. History Surgery Operation Date: 07/10/22 10:05 Proposed Procedures p Left Total Shoulder Arthroplasty - Danis Ward MD Height/Weight Height: 5 ft 2 in Weight: 72.6 kg Allergies Allergy/AdvReac Type Severity Reaction Status Date / Time codeine Allergy Severe Nausea Verified 06/18/22 09:54 Sulfa (Sulfonamide Allergy Severe Hives Verified 06/18/22 09:54 Antibiotics) Medications Home Medications Medication Instructions Recorded Confirmed Last Taken atorvastatin 10 mg tablet 10 mg PO QAM 04/22/20 06/18/22 04/22/20 glipizide 5 mg tablet, extended 2.5 mg PO DAILY 04/22/20 06/18/22 04/22/20 release 24 hr metformin 1,000 mg tablet 1,000 mg PO BID 04/22/20 06/18/22 04/21/20 pantoprazole 20 mg tablet,delayed 20 mg PO QAM 04/22/20 06/18/22 04/22/20 release pediatric multivitamin no.29 2 tab PO QAM 04/22/20 06/18/22 04/22/20 (Gummies [employer]' Multivitamins chewable tablet) sertraline 50 mg tablet 50 mg PO QAM 04/22/20 06/18/22 04/22/20 trazodone 100 mg tablet 100 mg PO HS 04/22/20 06/18/22 04/21/20 semaglutide 0.25 mg or 0.5 mg (2 1 mg subcut WK 06/18/22 06/18/22 Unknown mg/1.5 mL) subcutaneous pen injector (Ozempic) Past Medical History Medical History Diabetes NIDDM Family history of malignant hyperthermia Family hx of MH sister and niece (sister's daughter) tested positive + mother with possible hx (not formally tested). Pt had genetic testing done 06/19/22- results pending per S. Hyperlipidemia Migraine Exercise / Class Metabolic Activity II 4-5 Yardwork/Stairs/Walk up hill (one FS (no CP, no SOB)) Past Family History Family History Mother Diabetes Dementia Malignant hyperthermia Possible Sister Malignant hyperthermia Family/Other Malignant hyperthermia Niece (sister's daughter) Past Surgical History Surgical History History of bilateral tubal ligation History of cholecystectomy 1993 History of colonoscopy Past Anesthesia History Malignant Hyperthermia (Family) History of PONV No Hx of PONV and Hx of Motion Sickness (+ vertigo) Social History Smoking Status: Never smoker tobacco type: cigarettes Do You Dip or Chew Tobacco: No Smoking End Date: 7 years ago (hx 1/2 PPD) Hx Alcohol Use: No Hx Substance Use: No substance use type: does not use Review of Systems Patient denies chest pain, shortness of breath, dyspnea on exertion, reflux, cough, wheezing, palpitations. Physical Exam Vital Signs VITALS BP 122/85 P 82 TEMP 98.3 SP02 97%RA RESP 16 PHYSICAL Mildly decreased cervical extension range of motion. Full TMJ range of motion. TMD 2.5 finger breaths (small chin) Mallampati Score 3 Dentition: intact Lungs: clear throughout to auscultation Cardiac: regular rate and rhythm, no murmurs noted Spine: normal Carotid arteries: negative bruit Extremities: no edema Lab Results Anesthesia Preop Results Results Anesthesia Widget: WBC 8.38 K/ul (4.8-10.8) 06/21/22 Hgb 14.0 g/dl (12.0-16.0) 06/21/22 Hct 43.8 % (34.1-44.9) 06/21/22 Plt 472 K/uL (130-400) H 06/21/22 PT 10.1 Seconds (9.0-12.0) 06/21/22 PTT 31.9 Seconds (21.0-31.0) H 06/21/22 INR 0.9 (0.9-1.1) 06/21/22 Urine Color Yellow 06/21/22 Urine Appearance Clear (Clear) 06/21/22 Urine pH 7.0 (4.5-7.5) 06/21/22 Urine Specific [place] 1.007 (1.000-1.030) 06/21/22 Urine Protein Negative (Negative) 06/21/22 Urine Glucose (UA) Negative (Negative) 06/21/22 Urine Ketones Negative (Negative) 06/21/22 Urine Blood Negative (Negative) 06/21/22 Urine Nitrite Negative (Negative) 06/21/22 Urine Bilirubin Negative (Negative) 06/21/22 Urine Urobilinogen Negative (Negative) 06/21/22 Urine Leukocyte Esterase Negative (Negative) 06/21/22 Blood Type A Positive 06/21/22 Antibody Screen NEGATIVE 06/21/22 Testing Laboratory Results 06/14/22 SODIUM 140 POTASSIUM 4.4 CHLORIDE 101 CO2 23 BUN 8 CREATININE 0.6 GLUCOSE 119 HGBA1C 5.6% Electrocardiogram Date: 06/21/22 NSR at 79bpm. Chest X-Ray Date: 06/21/22 FINDINGS: PA and lateral chest radiographs are obtained. No prior studies are available for comparison at the time of dictation. The cardiomediastinal silhouette is unremarkable noting atherosclerotic calcification of the thoracic aorta. There is bibasilar scarring/atelectasis. No airspace consolidation or pleural effusion is identified. There is no pneumothorax. The skeletal structures are osteopenic. The bony thorax appears intact. Arthritic change is seen in the shoulders. Cholecystectomy clips are noted in the right upper quadrant. IMPRESSION: No active disease in the chest.
--- NOTE | 2022-07-09 18:04 | History & Physical Report ---
Date of Service July 09, 2022 Assessment & Plan (1) Primary osteoarthritis, left shoulder: Plan: Treatment options discussed with patient. She has failed conservative measures and would like to proceed with surgical intervention. Risks, benefits and alternatives to surgery including but not limited to infection, DVT, pain, stiffness, need for revision surgery, damage to blood vessels, damage to nerves, PE, , were discussed with the patient and they wish to proceed. Plan on left total shoulder arthroplasty scheduled for [facility] on 07/10/[address] Ward. Will plan on OPPT. All questions answered. F/u post op. History of Present Illness Chief Complaint: Left shoulder pain Primary Care Provider: Korin Jaime DO 66yo female with PMHx significant for anxiety, DM2, GERD presents with ongoing left shoulder pain. She has failed conservative measures including injections and anti-inflammatories. Pain interfering with her daily activity. She would like to proceed with surgical intervention. Patient denies headaches, sweats, fevers, chills, double vision, blurred vision, cough, sore throat, dysphagia, chest pain, sob, wheezing, n/v/d/c, numbness, tingling, fatigue, urinary symptoms, mood disorders. ROS positive for left shoulder pain and stiffness. Allergies Allergy/AdvReac Type Severity Reaction Status Date / Time codeine Allergy Severe Nausea Verified 06/18/22 09:54 Sulfa (Sulfonamide Allergy Severe Hives Verified 06/18/22 09:54 Antibiotics) Home Medications Medication Instructions Recorded Confirmed Type atorvastatin 10 mg tablet 10 mg PO QAM 04/22/20 06/18/22 History glipizide 5 mg tablet, extended 2.5 mg PO DAILY 04/22/20 06/18/22 History release 24 hr metformin 1,000 mg tablet 1,000 mg PO BID 04/22/20 06/18/22 History pantoprazole 20 mg tablet,delayed 20 mg PO QAM 04/22/20 06/18/22 History release pediatric multivitamin no.29 2 tab PO QAM 04/22/20 06/18/22 History (Gummies Girls' Multivitamins chewable tablet) sertraline 50 mg tablet 50 mg PO QAM 04/22/20 06/18/22 History trazodone 100 mg tablet 100 mg PO HS 04/22/20 06/18/22 History semaglutide 0.25 mg or 0.5 mg (2 1 mg subcut WK 06/18/22 06/18/22 History mg/1.5 mL) subcutaneous pen injector (Ozempic) Past Med/Surg History Medical History Diabetes NIDDM Family history of malignant hyperthermia Family hx of MH sister and niece (sister's daughter) tested positive + mother with possible hx (not formally tested). Pt had genetic testing done 06/19/22- results pending per [facility]. Hyperlipidemia Migraine Surgical History History of bilateral tubal ligation History of cholecystectomy 1993 History of colonoscopy Family History Mother Diabetes Dementia Malignant hyperthermia Possible Sister Malignant hyperthermia Family/Other Malignant hyperthermia Niece (sister's daughter) Social History Smoking Status: Never smoker Tobacco Type: Cigarettes Second Hand Exposure: No; Hx Alcohol Use: No Hx Substance Use: No Preferred Language: Martiniquais Communication Ability: Effective Loom Changer Required: No Beliefs That Will Affect Care: None Current Living Situation: Alone Feels Safe at Home: Yes Assistive Devices: Contacts and Glasses Review of Systems All systems reviewed & are unremarkable except as noted in HPI & below Physical Exam Constitutional: well developed and well nourished; no acute distress Eyes: PERRL, conjunctivae normal, anicteric sclerae ENMT: external ear and nose normal, oropharynx normal Neck: trachea midline, no thyromegaly Respiratory: normal respiratory effort, lungs clear to auscultation Cardiovascular: RRR, no murmur, no edema Musculoskeletal: Left shoulder: Tenderness anterior glenoid, anterolateral acromion. Positive impingement signs. Painful ROM with abduction to 90 degrees, FF to 140 degrees, ER to 20 degrees actively. Skin: no rashes, warm and dry Neurologic: patellar DTR's 2+ bilat, sensation intact Psychiatric: A+Ox3, euthymic affect Results & Data ([place]) Laboratory Results Left shoulder radiographs demonstrate severe endstage osteoarthritis bone on bone GH joint with posterior wear and posterior subluxation. MRI demonstrates no full thickness rotator cuff tear.
[~2022-07-10 07:07] MED LIST: ACETAMINOPHEN 500 MG TAB PO SCH; BUPIVACAINE 0.5 % 5 MG/1 ML PF 10ML VIAL ONE; FAMOTIDINE 20 MG TAB PO SCH; GABAPENTIN 600 MG DOSE PO SCH; LR 15ML/HR IV SCH; METOCLOPRAMIDE HCL 10 MG TABLET PO SCH; PROPOFOL IV EMULSION 10 MG/ML 100 ML VIAL IV ONE; TRANEXAMIC ACID 1,000 MG **IV Intra-op IV SCH; TRANEXAMIC ACID 1,000 MG **IV Pre-op IV SCH; ceFAZolin 1000MG 1,000 MG/7.5 ML SYR IV SCH
[2022-07-10] MEDS ORDERED: LIDOCAINE 2% MPF LOCAL 5 ML VIAL INFIL ONE (08:06)
[2022-07-10] MEDS ORDERED: PROPOFOL IV EMULSION 10 MG/ML 20 ML VIAL IV ONE (08:06)
[2022-07-10] MEDS ORDERED: ROCURONIUM BROMIDE 10 MG/ML 5 ML VIAL IV ONE ×6 (08:06→12:08)
[2022-07-10] MEDS ORDERED: MIDAZOLAM HCL 1 MG/ML 2ML VIAL ONE (08:52)
[2022-07-10] MEDS ORDERED: KETAMINE 50 MG/5 ML SYRINGE ONE ×2 (08:52→13:17)
[2022-07-10] MEDS ORDERED: fentaNYL citrate 100 MCG/2 ML VIAL ONE (08:55)
[2022-07-10] MEDS ORDERED: EpINEphrine HCL INJ 1 MG/ML 1ML SYRINGE ONE (10:46)
[2022-07-10] MEDS ORDERED: EPINEPHrine HCL INJ 1 MG/ML 30ML ONE (12:03)
[2022-07-10] MEDS ORDERED: ONDANSETRON INJ 2 MG/ML 2 ML VIAL ONE (12:05)
[2022-07-10] MEDS ORDERED: ATROPINE SULFATE 0.1 MG/ML 10ML SYR IV PRN (12:31)
[2022-07-10] MEDS ORDERED: ONDANSETRON INJ 2 MG/ML 2 ML VIAL IV PRN ×2 (12:31→17:20)
[2022-07-10] MEDS ORDERED: FLUMAZENIL 0.1 MG/1 ML 10 ML VIAL IV PRN (12:31)
[2022-07-10] MEDS ORDERED: ePHEDrine sulfate 50 MG/ML AMP IV PRN (12:31)
[2022-07-10] MEDS ORDERED: NALOXONE HCL 0.4 MG/1 ML VIAL/CARP IV PRN ×2 (12:31→17:20)
[2022-07-10] MEDS ORDERED: PROMETHAZINE HCL 12.5 MG in SODIUM CHLORIDE 0.9% 50 ML IV PRN (12:31)
[2022-07-10] MEDS ORDERED: LABETALOL HCL IV 5 MG/ML 20ML IV PRN (12:31)
[2022-07-10] MEDS ORDERED: GLYCOPYRROLATE 0.2 MG/ML VIAL ONE (13:45)
[2022-07-10] MEDS ORDERED: NEOSTIGMINE METHYLSULFATE 1 MG/ML 10ML VIAL ONE (13:45)
--- NOTE | 2022-07-10 15:23 | Operative Report ---
Post Operative Report Pre & Post Diagnosis Operation Date: 07/10/22 09:50 Pre-Op Diagnosis: Left Shoulder end-stage glenohumeral osteoarthritis Post-Op Diagnosis: Left Shoulder end-stage glenohumeral osteoarthritis, biceps tendinopathy and tenosynovitis, posterior shoulder instability. I identified the patient and participated in the time-out.: Yes Procedure Operation Date: 07/10/22 09:50 Actual Procedures p Left Total Shoulder Arthroplasty, posterior capsular shift, biceps tenodesis.- Danis Ward MD Surgeon Danis Ward MD Ends Down Checker Charles HOROWITZ Estimated Blood Loss 75 Findings Consistent with Post-Op Diagnosis Specimens Humeral head cut Drains 2 Hemovac Anesthesia Type General Regional Complications none Disposition Disposition: Recovery Room Indications 66-year-old female with chronic bilateral shoulder pain left greater than right. Radiographs demonstrate end-stage glenohumeral osteoarthritis with posterior subluxation 77% on CT scan blueprint preoperative templating. Patient has a B2 glenoid. [id number] glenohumeral joint with intact rotator cuff. Description of Procedure The patient was taken to the operating room and anesthetized under a general and regional block anesthesia. A towel roll was placed under the medial border of the scapula of the left shoulder. The patient's head was placed on a foam headrest and protective eyewear was placed and the extremities were well padded. The arm was draped free in order to manipulate the shoulder as necessary. The shoulder exam demonstrated 150 degrees forward flexion 90 degrees abduction 20 degrees external rotation 30 degrees internal rotation. The shoulder was sterilely prepped and draped in the usual sterile fashion. An anterior deltopectoral approach was performed. A longitudinal incision was made in the interval. The skin was incised sharply and subcutaneous tissues dissected down to the fascia. The cephalic vein which was very diminutive was identified and retracted laterally with the deltoid. Any crossing veins were tied off with silk ties and divided. The clavipectoral fascia was divided at the lateral margin of the conjoined tendon and divided up to the level of the coracoacromial ligament which was preserved. The upper 1 cm of the pectoralis was released for inferior exposure. The biceps tendon findings demonstrated chronic biceps tenosynovitis tendinopathy with tenosynovitis fluid collection extending up into the bicipital groove.. The rotator cuff tendon findings demonstrated intact normal-appearing rotator cuff. The upper centimeter of the pectoralis tendon was released for inferior exposure. Biceps tendon was tenodesed to the pectoralis with [id number] #2 FiberWire sutures and the proximal biceps was resected. Self-retaining retractor was placed.. The circumflex vessels were identified and tied off with silk ties and divided laterally. The fibers and subscapularis were split longitudinally at the level of the circumflex vessels down to the capsule and then reflected off the inferior capsule using a Kitner elevator. The axillary nerve was identified with a tug test and protected with a blunt Klarissa retractor. The rotator interval was opened up and extended down to the glenoid. The subscapularis tendon was taken down with a trans- tendinous incision leaving a cuff of tissue for repair on the lesser tuberosity. The incision was carried down to the tendon and the capsule and a #1 Vicryl suture was placed into the free end of the subscapularis tendon. The capsule was subperiosteally dissected off the inferior neck of the humerus exposing the humeral osteophytes which demonstrated very massive inferior humeral osteophytes up to 3 cm inferior to the normal articular surface extending from anterior to posterior.. The osteophytes were excised with an artist chisel and a rongeur. The capsular release along the inferior neck of the humerus was completed. The humerus was then retracted posterior to the glenoid with a Fukuda retractor. The remainder of the biceps tendon and labrum was resected. The glenoid findings demonstrated large anterior superior osteophyte B2 glenoid with posterior inferior sloping of the glenoid with complete eburnated bone on the entire glenoid from central to posteriorly with some remnants of articular cartilage along the anterior articular surface.. I did an anterior inferior and posterior inferior release with electrocautery on bone and a [place] elevator with the axillary nerve continuing to be protected with the blunt Hohmann retractor inferiorly. When the releases were completed and the humeral head was exposed with some extension and external rotation and in anatomic head cut was made using the oscillating saw. There was some osteopenia of the bone and some subchondral cystic changes that I felt would compromise stemless shoulder placement fixation so I had to go with a stemmed implant. The Tornier ascend flex stem humeral implant and the Cortiloc augmented posterior glenoid component were chosen based on blueprint preoperative templating.. Attention was first taken to preparation of the humeral shaft. A centralizing awl was used followed by broaches up to size 2 which was appropriate fit and fill.. The trial broach was left in place and a cut protector was placed. The humerus was then retracte d posterior to the glenoid using a Bankart retractor anteriorly and blunt Klarissa and posterior Tornier glenoid retractor. The custom blueprint glenoid guide was placed in position and the central drill pin was placed. The small 40 radius reamer was utilized initially reaming to the appropriate depth. The 15 degree augmented reamer was utilized. The trial guide and peg hole reamer guide was placed with appropriate fit and peg holes were reamed. the central drill widened and then the small 40 radius 15 augmented trial component was placed with a tight fit. The trial was removed and the glenoid was irrigated with pulsatile lavage antibiotic solution and the drill holes were dried and packed with epinephrine-soaked tampons for hemostasis. The Pal[place]os G cement was vacuum mixed. The final component was cemented into position and held in position with pressure until the cement cured. This was the small left 40 radius 15 degree augmented Cortiloc glenoid component. A humeral head trial size 46 x 17 was placed. A trial reduction was performed and the shoulder was unstable with forward flexion and posterior stress. I tried upsized to 48 x 18 head but this was still unstable and the subscap was tight for repair limiting external rotation so I felt 46 by 17 was appropriate size based on the patient's anatomy. Due to the instability this required removing the head trial placed and cut protector back in place replacing retractors followed by performing a posterior capsular shift with [id number] plication sutures and posterior capsule using #1 Vicryl's sutures. Trial was placed back in place rotated appropriately and resecured in place and we did another trial reduction and now with rotation in the plane of the glenoid with some slight posterior stress and adduction in the implant was stable now. The trial was then removed and 3 drill holes were made into the hard bone in the bicipital groove lateral to the lesser tuberosity and 3 #5 FiberWire transosseous sutures were placed for repair of the subscapularis. After further irrigation of the canal and the final components were assembled. The final components were the Tornier ascend flex size 2B standard stem with a 46 x 17 mm low offset humeral head. The implant was then impacted into the humerus with a tight press-fit. The humerus was reduced to the glenoid and stability verified. The subscapularis was repaired with the #5 FiberWire sutures in a Carlos-Blas suture technique and lateral row fixation with [id number] #2 FiberWire in the soft tissue. The rotator interval was closed and maximal external rotation. The pectoralis was then closed with akdbpo-[id number] #2 FiberWire suture. The sutures were passed through the biceps tendon as well to reinforce the biceps tenodesis. 2 Hemovac drains were placed. The deltopectoral interval was closed with [id number] #1 Vicryl sutures. The subcutaneous tissues were closed with interrupted 2-0 Vicryl and the skin was closed with miller and a sterile dressing was applied. The patient tolerated the procedure well. Charles HOROWITZ my physician first assistant, participated as recruiting assistant and was integral part in all aspects of the pr ocedure. He assisted in soft tissue retraction instrument management suture management and assisted in the subcutaneous and skin closure and will participate in the postoperative care the patient. I attest to the content of the Intraoperative Record and any orders documented therein. Any exceptions are noted below.
[2022-07-10] MEDS: fentaNYL citrate 100 MCG/2 ML VIAL IV PRN ×2 (15:40→15:45)
[2022-07-10] MEDS: HYDROmorphone INJ 1 MG/ML SYRINGE IV PRN ×2 (16:02→16:19)
--- NOTE | 2022-07-10 16:12 | XRay Report ---
XR shoulder LT min 2V routine HISTORY: 66 years-old Female Post shoulder surgery left shoulder arthroplasty COMPARISON: Chest radiograph 06/21/2022 TECHNIQUE: 2 views of the left shoulder FINDINGS: Left shoulder arthroplasty demonstrates satisfactory alignment. No acute fracture, malalignment or un expected opaque foreign body. Overlying skin miller are noted along with expected postoperative soft tissue swelling with deep tissue air and surgical drainage catheter. The imaged lung mar appear c lear. IMPRESSION: Left shoulder arthroplasty with expected postoperative changes. ACT 112: Negative or not required by law. The above report was generated using voice recognition software. It may contain grammatical, syntax o r spelling errors. Electronically signed by: iJmy Ren M.D. 07/10/2022 4:11 PM
--- NOTE | 2022-07-10 16:12 | Anesthesiology Progress Note ---
Date of Service July 10, 2022 Anesthesia Post Procedure Vital Signs Vital Signs: Temp Pulse Pulse Resp BP Pulse Ox O2 Del Method 07/10/22 16:00 36.2 C L 82 18 137/85 97 Nasal Cannula 07/10/22 15:50 83 16 143/89 H 97 Nasal Cannula 07/10/22 15:40 79 18 158/95 H 100 Oxymask 07/10/22 15:30 83 17 157/95 H 100 Oxymask 07/10/22 15:23 36 C L 90 16 146/94 H 98 Oxymask 07/10/22 08:02 36.8 C 86 18 134/93 95 Room Air O2 Flow Rate 07/10/22 16:00 2 07/10/22 15:50 2 07/10/22 15:40 15 07/10/22 15:30 15 07/10/22 15:23 15 07/10/22 08:02 Pain Intensity Left Shoulder: Pain Intensity: 6 Transfer of Care Handoff Completed per policy Notes Mental Status: alert / awake / arousable Patient Amnestic to Procedure: Yes Nausea / Vomiting: adequately controlled Pain: adequately controlled Airway Patency, RR, SpO2: stable & adequate BP & HR: stable & adequate Hydration State: stable & adequate Anesthetic Complications: no major complications apparent
[2022-07-10] MEDS ORDERED: METOCLOPRAMIDE HCL INJ 5 MG/ML 2 ML VIAL IV PRN (17:20)
[2022-07-10] MEDS ORDERED: HYDROmorphone INJ 0.5 MG/0.5 ML SYR IV PRN (17:20)
[2022-07-10] MEDS ORDERED: PHARMACY GLYCEMIC MGMT CONSULT PRN (17:20)
[2022-07-10] MEDS ORDERED: MAGNESIUM HYDROXIDE SUSP 30 ML UDC PO PRN (17:20)
[2022-07-10] MEDS ORDERED: bisacodyL 10 MG SUPP PR PRN (17:20)
[2022-07-10] MEDS: SODIUM CHLORIDE 0.9% 1000ML 1,000 ML IV SCH (17:24)
[2022-07-10] MEDS ORDERED: CARBOHYDRATES FOR HYPOGLYCEMIA PO PRN (18:30)
[2022-07-10] MEDS ORDERED: GLUCOSE 10 TAB/TUBE PO PRN (18:30)
[2022-07-10] MEDS ORDERED: GLUCAGON FOR INJ 1 MG VIAL IM PRN (18:30)
[2022-07-10] MEDS ORDERED: GLUCOSE 40% GEL 15 GM TUBE PO PRN (18:30)
[2022-07-10] MEDS ORDERED: DEXTROSE 50% 50 ML SYRINGE IV PRN (18:30)
[2022-07-10] MEDS: General Order Problem(s) SCH ×3 (18:41→19:09)
[2022-07-10] MEDS: oxyCODONE HCL IR 5 MG TAB (IMMEDIATE RELEASE) PO PRN (19:56)
[2022-07-10] MEDS: INSULIN ASPART PER UNIT SC SCH ×2 (20:01→21:33)
[2022-07-10] MEDS: ceFAZolin 1000MG 1,000 MG/7.5 ML SYR IV SCH (20:24)
[2022-07-10] MEDS: DOCUSATE SODIUM 100 MG CAP PO SCH (20:25)
[2022-07-10] MEDS ORDERED: SENNA 8.6 MG TAB PO SCH (21:00)
[2022-07-10] MEDS ORDERED: traZODone HCL 100 MG TAB PO SCH (21:00)
[2022-07-10] MEDS: ACETAMINOPHEN 500 MG TAB PO SCH (22:03)
[2022-07-11] MEDS: oxyCODONE HCL IR 5 MG TAB (IMMEDIATE RELEASE) PO PRN ×3 (00:12→08:17)
[2022-07-11] MEDS: SODIUM CHLORIDE 0.9% 1000ML 1,000 ML IV SCH (02:24)
[2022-07-11] MEDS: ceFAZolin 1000MG 1,000 MG/7.5 ML SYR IV SCH (03:45)
[2022-07-11] MEDS: ACETAMINOPHEN 500 MG TAB PO SCH (05:22)
[2022-07-11 07:06] LABS: Basophils # (auto) 0.07 K/uL (0-0.2); Basophils % (auto) 0.5 %; Eosinophils # (auto) 0.04 K/uL (0-0.50); Eosinophils % (auto) 0.3 %; Hematocrit (blood only) 41.9 % (34.1-44.9); Hemoglobin 13.6 g/dl (12.0-16.0); Immature Granulocytes # (auto) 0.04 K/uL (0.00-0.02); Immature Granulocytes % (auto) 0.3 %; Lymphocytes # (auto) 1.46 K/uL (1.2-3.4); Lymphocytes % (auto) 11.4 %; Mean Corpuscular Hemoglobin 27.9 pg (25.0-34.0); Mean Corpuscular Hgb Conc 32.5 g/dL (32.0-36.0); Mean Corpuscular Volume 85.9 fL (80.0-100.0); Mean Platelet Volume 9.9 fL (9.4-12.3); Neutrophils # (auto) 10.27 K/uL (1.4-6.5); Neutrophils % (auto) 80.5 %; Platelet Count 451 K/uL (130-400); RDW Coefficient of Variation 15.5 % (11.5-14.5); RDW Standard Deviation 48.9 fL (36.4-46.3); Red Blood Count 4.88 M/uL (3.93-5.22); White Blood Count 12.78 K/ul (4.8-10.8)
[2022-07-11] MEDS: General Order Problem(s) SCH (07:10)
[2022-07-11 07:54] LABS: BUN Creatinine Ratio 13.1 (10-20); Calcium 8.8 mg/dl (8.5-10.1); Creatinine Clr Calc Pharmacy 85.7 ml/min; Est GFR (Non-African American) 95.8 ml/min; Potassium 3.8 mmol/L (3.5-5.1)
[2022-07-11] MEDS: DOCUSATE SODIUM 100 MG CAP PO SCH (08:19)
[2022-07-11 08:31] LABS: Estimated Average Glucose 117 mg/dl; Hemoglobin A1C 5.7 % (4.5-5.6)
[2022-07-11] MEDS ORDERED: MULTIVITAMIN TAB PO SCH (09:00)
[2022-07-11] MEDS ORDERED: ATORVASTATIN 10 MG TAB PO SCH (09:00)
[2022-07-11] MEDS ORDERED: metFORMIN HCL 500 MG TAB PO SCH (09:00)
[2022-07-11] MEDS: INSULIN ASPART PER UNIT SC SCH (09:00)
[2022-07-11] MEDS ORDERED: PANTOprazole 40 MG TAB PO SCH (09:00)
[2022-07-11] MEDS ORDERED: SERTRALINE HCL 50 MG TABLET PO SCH (09:00)
--- NOTE | 2022-07-11 10:02 | Orthopedic Progress Note ---
Date of Service July 11, 2022 Assessment & Plan (1) Primary osteoarthritis, left shoulder: Plan: Postop day #1 left total shoulder arthroplasty with posterior capsular shift -PT/OT: No formal therapy at this time. May do elbow/wrist/hand motion -DVT prophylaxis: SCDs -Pain management as written -AM labs: Mild leukocytosis likely reactive due to surgical stress and perioperative steroids. Hemoglobin at 13.6 this morning. -Discharge planning: Plan on discharge home when stable. Plan on discharge home today. Admission and Anticipated Discharge Date Admission Date: July 10, 2022 Subjective Patient is postop day 1 left total shoulder. She is having some pain this morning since block wore off otherwise no complaints. Denies chest pain, shortness of breath, nausea/vomiting/diarrhea, headache/dizziness. Review of Systems Review of Systems: All systems reviewed & are unremarkable except as noted in Subjective Physical Exam Physical Exam: Left shoulder: Dressing is clean, dry, intact. Sling in place. Fingers are mobile with good relief map modeler strength. Able to extend her wrist. Still some numbness into her thumb. Distally neurovascular status and sensation int act grossly. Constitutional: WD/WN, vitals as above Results & Data ([facility]) Vital Signs (Past 12 Hours) Vital Signs Temp Pulse Resp BP Pulse Ox O2 Del Method 07/11/22 07:14 37.0 C 90 18 110/72 92 Room Air 07/11/22 03:01 36.7 C 75 16 136/80 91 Room Air 07/10/22 22:09 36.9 C 93 H 16 118/76 90 Room Air
[2022-07-12] MEDS ORDERED: PANTOprazole 40 MG TAB PO SCH (09:00)
--- NOTE | 2022-07-12 19:33 | Discharge Summary ---
Date of Service July 12, 2022 Admission HPI Per Admitting Provider 66yo female with PMHx significant for anxiety, DM2, GERD presents with ongoing left shoulder pain. She has failed conservative measures including injections and anti-inflammatories. Pain interfering with her daily activity. She would like to proceed with surgical intervention. Patient denies headaches, sweats, fevers, chills, double vision, blurred vision, cough, sore throat, dysphagia, chest pain, sob, wheezing, n/v/d/c, numbness, tingling, fatigue, urinary symptoms, mood disorders. ROS positive for left shoulder pain and stiffness. Admission Exam Per Admitting Provider Constitutional: well developed and well nourished; no acute distress Eyes: PERRL, conjunctivae normal, anicteric sclerae ENMT: external ear and nose normal, oropharynx normal Neck: trachea midline, no thyromegaly Respiratory: normal respiratory effort, lungs clear to auscultation Cardiovascular: RRR, no murmur, no edema Musculoskeletal: Left shoulder: Tenderness anterior glenoid, anterolateral acromion. Positive impingement signs. Painful ROM with abduction to 90 degrees, FF to 140 degrees, ER to 20 degrees actively. Skin: no rashes, warm and dry Neurologic: patellar DTR's 2+ bilat, sensation intact Psychiatric: A+Ox3, euthymic affect Principal Diagnosis left shoulder osteoarthritis Discharge Exam Left shoulder: Dressing is clean, dry, intact. Sling in place. Fingers are mobile with good spanish moss picker strength. Able to extend her wrist. Still some numbness into her thumb. Distally neurovascular status and sensation intact grossly. Constitutional WD/WN, vitals as above Discharge Data Allergies Allergy/AdvReac Type Severity Reaction Status Date / Time codeine Allergy Severe Nausea Verified 07/10/22 07:59 Sulfa (Sulfonamide Allergy Severe Hives Verified 07/10/22 07:59 Antibiotics) Procedures Performed Operation Date: 07/10/22 09:50 Actual Procedures p Left total shoulder arthroplasty, posterior capsular shift, biceps te nodesis(Left) - Danis Ward MD Ordered Studies 07/10/22 05:00 US - OR guided needle placemen Routine Hospital Course (1) Primary osteoarthritis, left shoulder: Postop day #1 left total shoulder arthroplasty with posterior capsular shift -PT/OT: No formal therapy at this time. May do elbow/wrist/hand motion -DVT prophylaxis: SCDs -Pain management as written -AM labs: Mild leukocytosis likely reactive due to surgical stress and perioperative steroids. Hemoglobin at 13.6 this morning. -Discharge planning: Plan on discharge home when stable. Plan on discharge home today. Lab Results 07/10/22 07/10/22 07/10/22 Range/Units 07:37 07:44 15:27 WBC (4.8-10.8) K/ul RBC (3.93-5.22) M/uL Hgb (12.0-16.0) g/dl Hct (34.1-44.9) % MCV (80.0-100.0) fL MCH (25.0-34.0) pg MCHC (32.0-36.0) g/dL RDW Std Deviation (36.4-46.3) fL RDW Coeff of Ronald (11.5-14.5) % Plt Count (130-400) K/uL MPV (9.4-12.3) fL Immature Gran % (Auto) % Neut % (Auto) % Lymph % (Auto) % [place] % (Auto) % Eos % (Auto) % Baso % (Auto) % Neut # (Auto) (1.4-6.5) K/uL Lymph # (Auto) (1.2-3.4) K/uL [place] # (Auto) (0.24-0.82) K/uL Eos # (Auto) (0-0.50) K/uL Baso # (Auto) (0-0.2) K/uL Immature Gran # (Auto) (0.00-0.02) K/uL Sodium (136-145) mmol/L Potassium (3.5-5.1) mmol/L Chloride (98-107) mmol/L Carbon Dioxide (21-32) mmol/L Anion Gap (3-11) BUN (6-23) mg/dl Creatinine (0.6-1.2) mg/dl Est Cr Clr Drug Dosing ml/min Est GFR ( Amer) ml/min Est GFR (Non-Af Amer) ml/min BUN/Creatinine Ratio (10-20) Glucose (70-99(Fasting)) mg/dl POC Glucose 117 H 104 H (70-99) mg/dl Estimat Average Glucose mg/dl Hemoglobin A1c (4.5-5.6) % Calcium (8.5-10.1) mg/dl SARS-CoV-2, RNA, NAAT NEGATIVE (NEGATIVE) 07/10/22 07/10/22 07/11/22 Range/Units 18:43 20:33 06:25 WBC (4.8-10.8) K/ul RBC (3.93-5.22) M/uL Hgb (12.0-16.0) g/dl Hct (34.1-44.9) % MCV (80.0-100.0) fL MCH (25.0-34.0) pg MCHC (32.0-36.0) g/dL RDW Std Deviation (36.4-46.3) fL RDW Coeff of Ronald (11.5-14.5) % Plt Count (130-400) K/uL MPV (9.4-12.3) fL Immature Gran % (Auto) % Neut % (Auto) % Lymph % (Auto) % [place] % (Auto) % Eos % (Auto) % Baso % (Auto) % Neut # (Auto) (1.4-6.5) K/uL Lymph # (Auto) (1.2-3.4) K/uL [place] # (Auto) (0.24-0.82) K/uL Eos # (Auto) (0-0.50) K/uL Baso # (Auto) (0-0.2) K/uL Immature Gran # (Auto) (0.00-0.02) K/uL Sodium (136-145) mmol/L Potassium (3.5-5.1) mmol/L Chloride (98-107) mmol/L Carbon Dioxide (21-32) mmol/L Anion Gap (3-11) BUN (6-23) mg/dl Creatinine (0.6-1.2) mg/dl Est Cr Clr Drug Dosing ml/min Est GFR ( Amer) ml/min Est GFR (Non-Af Amer) ml/min BUN/Creatinine Ratio (10-20) Glucose (70-99(Fasting)) mg/dl POC Glucose 92 114 H (70-99) mg/dl Estimat Average Glucose 117 mg/dl Hemoglobin A1c 5.7 H (4.5-5.6) % Calcium (8.5-10.1) mg/dl SARS-CoV-2, RNA, NAAT (NEGATIVE) 07/11/22 07/11/22 07/11/22 Range/Units 06:25 06:25 07:59 WBC 12.78 H (4.8-10.8) K/ul RBC 4.88 (3.93-5.22) M/uL Hgb 13.6 (12.0-16.0) g/dl Hct 41.9 (34.1-44.9) % MCV 85.9 (80.0-100.0) fL MCH 27.9 (25.0-34.0) pg MCHC 32.5 (32.0-36.0) g/dL RDW Std Deviation 48.9 H (36.4-46.3) fL RDW Coeff of Ronald 15.5 H (11.5-14.5) % Plt Count 451 H (130-400) K/uL MPV 9.9 (9.4-12.3) fL Immature Gran % (Auto) 0.3 % Neut % (Auto) 80.5 % Lymph % (Auto) 11.4 % [place] % (Auto) 7.0 % Eos % (Auto) 0.3 % Baso % (Auto) 0.5 % Neut # (Auto) 10.27 H (1.4-6.5) K/uL Lymph # (Auto) 1.46 (1.2-3.4) K/uL [place] # (Auto) 0.90 H (0.24-0.82) K/uL Eos # (Auto) 0.04 (0-0.50) K/uL Baso # (Auto) 0.07 (0-0.2) K/uL Immature Gran # (Auto) 0.04 H (0.00-0.02) K/uL Sodium 135 L (136-145) mmol/L Potassium 3.8 (3.5-5.1) mmol/L Chloride 102 (98-107) mmol/L Carbon Dioxide 25 (21-32) mmol/L Anion Gap 8 (3-11) BUN 8 (6-23) mg/dl Creatinine 0.61 (0.6-1.2) mg/dl Est Cr Clr Drug Dosing 85.7 ml/min Est GFR ( Amer) 111.0 ml/min Est GFR (Non-Af Amer) 95.8 ml/min BUN/Creatinine Ratio 13.1 (10-20) Glucose 162 H (70-99(Fasting)) mg/dl POC Glucose 145 H (70-99) mg/dl Estimat Average Glucose mg/dl Hemoglobin A1c (4.5-5.6) % Calcium 8.8 (8.5-10.1) mg/dl SARS-CoV-2, RNA, NAAT (NEGATIVE) Total Time Total Time Spent Total Time Spent (In Minutes): 20 Discharge Plan Discharge Items Patient Disposition: Home - Self-Care Reason For Visit: Left Shoulder Osteoarthritis Discharge Diagnosis: left shoulder osteoarthritis Activity: Per Instructions section Non-emergency contact: Surgeon Call non-emergency contact if: you have any medication questions, your pain is not controlled, your pain is concerning for you, you have a fever, your temperature is above 101, your wound has increased redness and your wound has increased drainage Follow-up/Referrals: Korin Jaime DO [Primary Care Provider] - Diet: Regular Addtl Attending Provider Instructions: ACTIVITY RECOMMENDATIONS: SELF CARE INSTRUCTIONS AFTER TOTAL SHOULDER ARTHROPLASTY A. You may do daily exercises as taught in physical therapy while in hospital. No lifting with the operative arm. No formal therapy until instructed to do so B. You are to wear your sling/immobilizer at all times EXCEPT when performing your daily exercises and for hygiene purposes. C. You may perform dry, daily dressing changes. Please keep your incision covered. You may shower 48 hours after surgery. Do not apply soap or any ointment/lotions directly over incision. Do not soak incision in bath tub/swimming pool. D. You may use ice as needed to operative shoulder. SPECIAL CARE INSTRUCTIONS: VERY IMPORTANT TO READ AND REVIEW A. There are a few signs you need to watch for after you are home. Call [facility] at [phone] if you experience any of the followin. Increased severe shoulder pain. Some pain is expected especially when you exercise. 2. Increased swelling in you shoulder or arm; pain or swelling in either upper extremity. 3. Any fluid drainage from the incision. 4. Shortness of breath or chest pain. B. Please call [facility] at [phone] if you have any questions or concerns about your operation or recovery. C. Call your physician if: 1. Temperature is greater than 101 degrees (F). 2. Pain is not relieved by prescribed pain medications. 3. Increase drainage or redness from incision. 4. Unanswered questions or concerns. FOLLOW UP VISIT: Please call [facility] at [phone] to schedule a follow up appointment with Dr. Ward or his PA in 12-14 days from your surgery date. Stand-Alone Forms: [facility], Opioid Pain Management, Smoking Cessation Medications and DC Order Prescriptions: New acetaminophen [Tylenol Extra Strength] 500 mg Tablet 1,000 mg PO Q8 Qty: 60 0RF oxycodone 5 mg Tablet 5 - 10 mg PO .Q4h-6h MDD 6 PRN (Reason: pain) Qty: 30 0RF Rx Instructions: Ongoing therapy, Dr. Ward supervising Continued atorvastatin [Lipitor] 10 mg tablet 10 mg PO QAM pantoprazole [Protonix] 20 mg tablet,delayed release (DR/EC) 20 mg PO QAM trazodone 100 mg tablet 100 mg PO HS metformin 1,000 mg tablet 1,000 mg PO BID sertraline [Zoloft] 50 mg tablet 50 mg PO QAM Gummies Girls' Multivitamins Tablet,Chewable 2 tab PO QAM Ozempic 0.25 mg or 0.5 mg(2 mg/1.5 mL) Pen Injector 1 mg SUBCUT WK Discharge Orders: Discharge Order (Routine); Ordered 07/11/22 Ordered By: Maurilio Montaño Admission Data Admit Date/Time: 07/10/22 15:25 Attending Provider: Danis Ward Admit Provider: Danis Ward Primary Care Provider: Korin Jaime Other Interventions: Discharge Summary Assessment (RN) Last Done: 07/11/22 10:00
== END 2022-07-11 11:42 | disposition home or self-care (01) | DRG 483 ==
LOC: ASU 07:07 → 3N 15:25 → INTOOBSV 15:25